=== PATIENT | male | born 1970 | race Caucasian/White ===

== ENCOUNTER 2017-07-15 15:41 | Inpatient (IN) | payer BC ==
[~2017-07-15] VITALS: Ht 175.3 cm; Wt 83.0 kg
[~2017-07-15 15:41] MED LIST: ACET-1693 PO; B-CO1CAP3 PO; CHLO0.1222 PO; FNTTP50 TD; METF1TAB53 PO; SITA100T3 PO; VALS40TA2 PO; nystatin
--- NOTE | 2017-07-15 17:04 | Medical Consult ---
Consultation Date of Consultation: Jul 15, 2017. Attending Physician: Mariusz Whitehead M.D. History of Present Illness 47 y/o male with tongue cancer undergoing radiation had PEG tube placed 8 days ago. Seen earlier this week by GI while in rad onc for discomfort and bumper was loosed 1 cm. Improved initially but over the last few days has had bloating after feeds, drainage around the tube, and today fever. Being admitted for further evaluation. Past Medical/Surgical History Medical History: HTN DM II invasive squamous cell carcinoma Surgeries & Dates: [place] teeth 05/09/17 Right partial glossectomy and right partial oropharyngectomy and right partial floor of mouth resection with right selective neck dissection - Dr. Dickinson 05/09/17 Left radial forearm free flap skin paddle , split thickness skin graft from the left thigh, right neck exploration, application of rigid external spint to the left upper extremity, tracheotomy - Dr. Bonner Vasectomy Social History Smoking Status: Never Smoker Allergies Coded Allergies: No Known Allergies (Unverified , 06/01/17) Review of Systems Constitutional: + fever, + weight loss (12 lbs prior to PEG) Physical Exam General Appearance: no apparent distress Abdomen/GI: non tender, soft, + pertinent finding (purulent around PEG only when tube is manipulated, no surrounding erythema) Assessment & Plan fever, leukocytosis s/p PEG placement no acute abdominal findings, agree with IV antibiotics await CT and would request contrast be given via PEG discussed with GI (Jett Mccrary) and attending (Dr. Whitehead) seen with Dr. Kurtz, he will be following over the weekend Patient seen and examined, history and labs reviewed and agree with above. History of tongue cancer, postprocedure day #8 from PEG tube placement, now with increased bloating and abdominal pain associated with some purulent drainage around this tube. Slightly tachycardic but this is normal per the , he did have a fever and his white blood cell count was elevated to 19,000. There is no overlying cellulitis, however it is tender to palpation along stoma. Concern for peristomal abscess or infection versus less likely Gastro colocutaneous fistula. Agree with admission to medicine service, IV antibiotics. Hold tube feeds for now. We'll obtain CT scan with IV contrast and oral contrast to the PEG tube. Overall the patient is stable, we'll await the results of the CT scan and see how he does with antibiotics. Surgery will follow, call for questions or concerns. Manoj Kurtz, DO
[2017-07-15] MEDS ORDERED: ONDANSETRON INJ 2 MG/ML 2 ML VIAL IV PRN (17:15)
[2017-07-15] MEDS ORDERED: ACETAMINOPHEN 325 MG TAB PO PRN (17:30)
[2017-07-15 17:55] VITALS: BMI 27.2
[2017-07-15] MEDS ORDERED: VANCOMYCIN CONSULT ACTIVE PRN (18:00)
[2017-07-15] MEDS ORDERED: PATIENT'S HEIGHT AND/OR WEIGHT NEEDED SCH (18:00)
[2017-07-15] MEDS ORDERED: PIPERACILL/TAZOBAC CONSULT ACTIVE PRN (18:00)
[2017-07-15 18:04] LABS: INR 1.1 (0.9-1.1); PTT PATIENT 31.7 SECONDS (21.0-31.0)
--- NOTE | 2017-07-15 18:10 | HISTORY & PHYSICAL EXAMINATION ---
DATE OF ADMISSION: 07/15/2017 PRIMARY CARE PROVIDER: Dr. Ribeiro CHIEF COMPLAINT: PEG tube associated abscess. HISTORY OF PRESENT COMPLAINT: He is a 47-year-old male with significant past medical history including diagnosis of tongue cancer in March of this year status post reconstructive surgery and ongoing chemotherapy and also diabetes and hypertension, apparently he has had a PEG tube placement last at [facility] for ongoing weight loss. He has been having complaining of some bloatiness after food since the PEG tube has been placed in. He has had checked the PEG tube site quite a few times since it was placed in. He was seen by GI as an outpatient last Tuesday, at that time the PEG tube was adjusted, as per the length, but his symptoms has not undergone any better. He complains to have ongoing bloatiness after food and noted to have some drain is coming out alongside the PEG tube placement. He was at the radiation department today and there, he was again seen by GI and noted to have pus coming out around the PEG tube with a probable localized abscesses. From that point, he was advised admission. He also mentioned to have some temperature since this morning, but no nausea and/or vomiting. He denies to have any other symptoms at this time. PAST MEDICAL HISTORY: Significant for tongue cancer, diagnosed in March of this year, status post reconstructive surgery and ongoing radiation since then, he has had radiation; has diabetes and hypertension. PAST SURGICAL HISTORY: Significant for reconstructive surgery of the tongue for tongue cancer, PEG tube placement last . FAMILY HISTORY: Significant that mother has diabetes and hypertension and had pancreatic cancer. SOCIAL HISTORY: He is . He has 2 children. He does not smoke and does not drink and he has been reasonably ambulant. ALLERGIES: NKDA. MEDICATIONS: As an outpatient - he has been on metformin 1000 mg b.i.d., Januvia 100 mg daily, Tylenol as directed, B complex 1 cap daily, Peridex 15 mL b.i.d. orally, fentanyl 50 mcg every 72 hours, Diovan 40 mg daily, and nystatin as directed. REVIEW OF SYSTEMS: Other systems reviewed are unremarkable except for those mentioned in history of present complaint. PHYSICAL EXAMINATION: GENERAL: On examination on the medical floor, he was not having any acute distress. VITAL SIGNS: Not yet noted, but unremarkable. HEENT: Typical for swelling of bilaterally upper neck with minimal tenderness. Oral cavity not examined but has thrush. CHEST: Clear to auscultate bilaterally. HEART: S1, S2 regular. ABDOMEN: Soft. PEG tube site was leaking with a serosanguineous and pus hematuria, localized tenderness around, no redness. Bowel sounds present. EXTREMITIES: Negative. MUSCULOSKELETAL: Did not show any acute arthritis. CENTRAL NERVOUS SYSTEM: He is alert, awake, oriented x3. LABORATORY AND IMAGING DATA: Noted today: His CBC noted today was white count 19.42, H&H 12.8/37.7, platelets 406. PRP, LFT, PT/INR, EKG, chest x-ray and CT of the abdomen is pending. IMPRESSION AND PLAN: 1. Abdominal abscess associated with PEG tube site. He was started with intravenous vancomycin and Zosyn. He will have a CAT scan with contrast to evaluate the area further and surgical consultation for probable drainage and GI consultation to probable changing of the PEG tube down the line. The blood culture will be taken as well. 2. Diabetes. His oral medications will be on hold. He will be put on sliding scale insulin coverage while in the hospital. 3. Hypertension. We will continue with his usual blood pressure medications. 4. Deep venous thrombosis prophylaxis with Lovenox. 5. Gastrointestinal prophylaxis with Maalox, Mylanta as needed. 6. Code status. He will be a full code. In my clinical judgment, the beneficiary meets criteria as per CMS for 2-midnight stay in the hospital. ROSE MARYD
[2017-07-15] MEDS ORDERED: PIPERACILL/TAZOBAC IV 4.5 GM in DEXTROSE 5% 50ML 50 ML IV ONE (18:15)
[2017-07-15 18:20] LABS: ALBUMIN 3.3 gm/dl (3.4-5.0); ALKALINE PHOSPHATASE 69 U/L (45-117); ALT/SGPT 17 U/L (12-78); AST/SGOT 8 U/L (15-37); BLOOD UREA NITROGEN 12 mg/dl (7-18); CALCIUM 8.9 mg/dl (8.5-10.1); CARBON DIOXIDE 30 mmol/L (21-32); CREATININE 0.68 mg/dl (0.60-1.40); GLUCOSE 148 mg/dl (70-99); POTASSIUM 4.3 mmol/L (3.5-5.1); SODIUM 131 mmol/L (136-145); TOTAL PROTEIN 7.9 gm/dl (6.4-8.2)
[2017-07-15] MEDS: NYSTATIN SUSP 500,000 U/5 ML UDC PO SCH (19:11)
--- NOTE | 2017-07-15 19:14 | DIAGNOSTIC IMAGING REPORT ---
CT OF THE ABDOMEN WITH ORAL CONTRAST CLINICAL HISTORY: Infected PEG tube. Evaluate for abscess. Head and neck cancer. COMPARISON STUDY: No previous studies for comparison. TECHNIQUE: Axial images of the abdomen were obtained without IV contrast. Oral contrast was administered. FINDINGS: Lung bases are clear. There is heterogeneity of the liver. This is likely artifactual. The spleen is at the upper limits of normal for size. Unenhanced images of the adrenal glands, kidneys and pancreas are normal. Caliber of visualized small and large bowel are normal. There is no abdominal lymphadenopathy. A PEG tube is in place and appears appropriately positioned within the distal body of the stomach. There is moderate associated infiltration along the course of the PEG tube extending from the skin to the stomach. There is moderate asymmetric enlargement of the upper aspect of the left rectus abdominis muscle. Evaluation for abscess is suboptimal on this unenhanced exam. No well-defined fluid collection is identified on this unenhanced exam to suggest abscess. No suspicious lesions are identified within visualized skeletal structures. There is no hydronephrosis. There is no biliary or pancreatic ductal dilatation. IMPRESSION: 1. Appropriately positioned PEG tube. Moderate infiltration along the course of the PEG tube suggests infectious etiology with cellulitis, unless recent interval placement. Associated asymmetric enlargement of the upper aspect of the left rectus abdominis muscle. This is suboptimally assessed on this unenhanced exam although the findings on this exam favor phlegmon. A CT with IV contrast if no contraindications is recommended to exclude an intramuscular abscess. 2. Heterogeneity of the liver which is likely artifactual. This can be assessed at time of follow-up contrast-enhanced CT. Electronically signed by: Caden Monroe M.D. 07/15/2017 7:13 PM Dictated Date/Time: 07/15/2017 7:02 PM
[2017-07-15] MEDS ORDERED: DEXTROSE 50% 50 ML SYR IV PRN (19:30)
[2017-07-15] MEDS ORDERED: VANCOMYCIN INJ 2,000 MG in SODIUM CHLORIDE 0.9% 500ML 500 ML IV ONE (19:30)
[2017-07-15] MEDS ORDERED: GLUCOSE 40% GEL 15 GM TUBE PO PRN (19:30)
[2017-07-15] MEDS ORDERED: GLUCAGON FOR INJ 1 MG VIAL SQ PRN (19:30)
[2017-07-15] MEDS ORDERED: GLUCOSE 10 TABS/TUBE PO PRN (19:30)
[2017-07-15 19:57] VITALS: BP 114/74; PULSE 116; TEMP 37.7; O2SAT 94
[2017-07-15] MEDS ORDERED: FENTANYL 50 MCG/HR TDSY TD SCH (20:00)
[2017-07-15] MEDS: INSULIN ASPART 100 UNITS/ML 3 ML PEN SC SCH (20:28)
--- NOTE | 2017-07-15 20:41 | DIAGNOSTIC IMAGING REPORT ---
CHEST 2 VIEWS ROUTINE CLINICAL HISTORY: Preoperative evaluation. COMPARISON STUDY: No previous studies for comparison. FINDINGS: Lung volumes are within normal limits. No consolidation is identified and there is no evidence of pulmonary edema. Cardiomediastinal silhouette is normal. There is no pneumothorax or pleural effusion. IMPRESSION: No acute cardiopulmonary findings. Electronically signed by: Caden Monroe M.D. 07/15/2017 8:39 PM Dictated Date/Time: 07/15/2017 8:37 PM
[2017-07-15] MEDS ORDERED: NURSING VERBAL MED ORDER ONE (20:45)
[2017-07-15] MEDS: ENOXAPARIN 40 MG/0.4 ML SYR SQ SCH (21:01)
[2017-07-15] MEDS: CHLORHEXIDINE GLUCONATE 0.12% 480 ML MT SCH (21:08)
[2017-07-15 23:16] VITALS: BP 107/72; PULSE 104; TEMP 37.3; O2SAT 95
[2017-07-15] MEDS: CHECK FENTANYL PATCH PLACEMENT SCH (23:45)
[2017-07-16] VITALS (8 sets, daily range): BP systolic 103–120; BP diastolic 67–80; PULSE 99–105; TEMP 36.7–37.5; O2SAT 94–96; BMI 27.3
[2017-07-16] MEDS: PIPERACILL/TAZOBAC IV 3.375 GM in DEXTROSE 5% 100ML 100 ML IV SCH ×3 (02:18→17:26)
[2017-07-16] MEDS: VANCOMYCIN INJ 1,250 MG in SODIUM CHLORIDE 0.9% 250ML 250 ML IV SCH ×2 (05:40→14:00)
[2017-07-16] MEDS: INSULIN ASPART 100 UNITS/ML 3 ML PEN SC SCH ×4 (06:30→21:40)
--- NOTE | 2017-07-16 07:36 | Surgery Progress Note ---
Surgery Progress Note Date of Service Jul 16, 2017. Subjective Post OP Day: Postprocedure day #9 PEG tube placement + flatus, + pain controlled, + diet (had food PO for dinner yesterday. ), No bowel movement, No nausea, No vomiting Patient states he is feeling much better. He has not noticed any drainage from the PEG tube site since yesterday although he has not tried to look. Feels his abdominal pain is improving. States he was given dinner last night PO and did not eat a whole lot but denies any nausea/vomiting with that meal. Reports that he has not flushed his PEG tube since yesterday at lunch because he felt it may not be good for his infection. Objective Vital Signs: Date Time Temp Pulse Resp B/P (MAP) Pulse Ox O2 Delivery O2 Flow Rate FiO2 07/16/17 00:00 95 Room Air 07/15/17 23:16 37.3 104 18 107/72 (84) 95 Room Air 07/15/17 19:57 37.7 116 18 114/74 (87) 94 Room Air 07/15/17 17:55 Room Air 93 General Appearance: WD/WN, no apparent distress Head: normocephalic, atraumatic Neck: trachea midline Respiratory/Chest: no respiratory distress, no accessory muscle use Abdomen: non tender, no organomegaly, no pulsatile mass, + distended, + pertinent finding (PEG tube in place - No drainage present or expressed with palpation at this time. ) Incision(s): no erythema, no drainage Laboratory Results: Results Past 24 Hours Test 07/15/17 17:34 07/15/17 19:41 Range/Units Prothrombin Time 11.4 9.0-12.0 SECONDS Prothromb Time International Ratio 1.1 0.9-1.1 Activated Partial Thromboplast Time 31.7 21.0-31.0 SECONDS Partial Thromboplastin Ratio 1.2 Sodium Level 131 136-145 mmol/L Potassium Level 4.3 3.5-5.1 mmol/L Chloride Level 95 98-107 mmol/L Carbon Dioxide Level 30 21-32 mmol/L Anion Gap 6.0 3-11 mmol/L Blood Urea Nitrogen 12 7-18 mg/dl Creatinine 0.68 0.60-1.40 mg/dl Estimated GFR () 133.7 Estimated GFR (Non- 115.3 BUN/Creatinine Ratio 18.1 10-20 Random Glucose 148 70-99 mg/dl Calcium Level 8.9 8.5-10.1 mg/dl Total Bilirubin 0.4 0.2-1 mg/dl Aspartate Amino Transf (AST/SGOT) 8 15-37 U/L Alanine Aminotransferase (ALT/SGPT) 17 12-78 U/L Alkaline Phosphatase 69 45-117 U/L Total Protein 7.9 6.4-8.2 gm/dl Albumin 3.3 3.4-5.0 gm/dl Globulin 4.6 2.5-4.0 gm/dl Albumin/Globulin Ratio 0.7 0.9-2 Bedside Glucose 166 70-99 mg/dl Microbiology Results 07/15/17 Blood Culture, Received Pending 07/15/17 Blood Culture, Received Pending Diagnostic Interpretation: CT OF THE ABDOMEN WITH ORAL CONTRAST CLINICAL HISTORY: Infected PEG tube. Evaluate for abscess. Head and neck cancer. COMPARISON STUDY: No previous studies for comparison. TECHNIQUE: Axial images of the abdomen were obtained without IV contrast. Oral contrast was administered. FINDINGS: Lung bases are clear. There is heterogeneity of the liver. This is likely artifactual. The spleen is at the upper limits of normal for size. Unenhanced images of the adrenal glands, kidneys and pancreas are normal. Caliber of visualized small and large bowel are normal. There is no abdominal lymphadenopathy. A PEG tube is in place and appears appropriately positioned within the distal body of the stomach. There is moderate associated infiltration along the course of the PEG tube extending from the skin to the stomach. There is moderate asymmetric enlargement of the upper aspect of the left rectus abdominis muscle. Evaluation for abscess is suboptimal on this unenhanced exam. No well-defined fluid collection is identified on this unenhanced exam to suggest abscess. No suspicious lesions are identified within visualized skeletal structures. There is no hydronephrosis. There is no biliary or pancreatic ductal dilatation. IMPRESSION: 1. Appropriately positioned PEG tube. Moderate infiltration along the course of the PEG tube suggests infectious etiology with cellulitis, unless recent interval placement. Associated asymmetric enlargement of the upper aspect of the left rectus abdominis muscle. This is suboptimally assessed on this unenhanced exam although the findings on this exam favor phlegmon. A CT with IV contrast if no contraindications is recommended to exclude an intramuscular abscess. 2. Heterogeneity of the liver which is likely artifactual. This can be assessed at time of follow-up contrast-enhanced CT. Electronically signed by: Caden Monroe M.D. 07/15/2017 7:13 PM Dictated Date/Time: 07/15/2017 7:02 PM Assessment & Plan postprocedural day #8 PEG tube placement - Infected PEG tube Improving, No fever at this time, No N/V despite small PO feed last PM, + Flatus, No BM yet. CT indeterminant due to only oral contrast via PEG tube and lack of IV contrast. Continue IV antibiotics and medical management. Will discuss findings with Dr. Kurtz to determine need for CT w/ IV contrast as his condition seems to be improving. Please contact with questions or concerns. Patient S&E, CT reviewed, agree with above. Infected PEG tube, CT with no IV contrast but showed some surrounding inflammation but no definitive abscess. Patient feeling better, Less drainage around tube, less pain. No fevers since last night. No CBC drawn this morning. Recommend leave PEG in place, no surgical intervention at this time. Recommend IV abx until WBC normalizes and afebrile 24-48 hours, then transition to orals. Consider repeat CT scan if no clinical improvement, this time with IV contrast and contrast down PEG tube. may flush PEG tube daily. Repeat CBC in am [place]. Shay Kurtz, DO
[2017-07-16] MEDS: CHLORHEXIDINE GLUCONATE 0.12% 480 ML MT SCH ×2 (08:16→19:38)
[2017-07-16] MEDS: CHECK FENTANYL PATCH PLACEMENT SCH ×2 (08:17→16:00)
[2017-07-16] MEDS: NYSTATIN SUSP 500,000 U/5 ML UDC PO SCH ×4 (08:17→19:37)
[2017-07-16] MEDS: VALSARTAN 80 MG TAB PO SCH (08:18)
[2017-07-16] MEDS: VITAMIN B COMPLEX TAB PO SCH (08:19)
--- NOTE | 2017-07-16 10:03 | GASTROINTESTINAL CONSULTATION ---
DATE OF CONSULTATION: 07/15/2017 REFERRING PHYSICIAN: Dr. Foley of radiation oncology. REASON FOR CONSULTATION: I was asked by Dr. Foley from radiation oncology to consult on this patient because of the concern of a PEG tube dysfunction and drainage. HISTORY OF PRESENT ILLNESS: The patient is a 47-year-old gentleman with a history of tongue cancer and undergoing radiation therapy for this who had a PEG tube placed for concerns about dysphagia from his radiation treatment. The patient states that for several days he has had some slight discomfort to the PEG site and a little bit of drainage and bleeding. Today, it became significantly worse and he mentioned this when he arrived for his radiation therapy. The patient has also noticed some low grade fevers and some chills. The who is present at the bedside states that the drainage was foul smelling. The patient states that it was foul smelling as well. The patient states he has had no issue having the peg pulled or concerns for it being dislodged. It had been functioning well. He has had no nausea, vomiting or rectal bleeding. PAST MEDICAL HISTORY: I reviewed his medical records and past medical history and his past medical history is significant for what is already mentioned as well as diabetes and hypertension. FAMILY HISTORY: Negative for gastrointestinal disease. SOCIAL HISTORY: Significant for no active smoking or drinking. ALLERGIES: He denies any drug allergies. OUTPATIENT MEDICATIONS: Include metformin, Januvia, numerous vitamins, Peridex, Diovan and fentanyl p.r.n. for pain. REVIEW OF SYSTEMS: As above, otherwise he denies any recent seizures. He denies any recent change in hearing or vision. He has had no joint swelling. He denies any palpitations or productive cough. He has had no depression or change in mood. He denies any dysuria or polyuria. He has had no shortness of breath. He denies any easy bruising, icterus, jaundice or rashes. He has had no heat or cold intolerance, though he has had some chills. He has had some related dysphagia to the radiation therapy. PHYSICAL EXAMINATION: GENERAL: Reveals a gentleman in no significant distress with anicteric skin. HEENT: Eyes show anicteric sclerae. He has some erythema to his face and neck. He has no obvious adenopathy. CHEST: Clear. HEART: Regular rate and rhythm. ABDOMEN: There are very small amount of erythema close to the PEG site, though the minute I moved the bolster of the peg significant pus and blood drained. I did express some more and it was foul smelling. He had tenderness to the site as well. I did loosen the bolster slightly and it does move freely in and out. He has good bowel sounds, no rebound tenderness. EXTREMITIES: Warm with good distal pulses. NEUROLOGIC: He is grossly intact. Alert and oriented x3. LABORATORY DATA: He had a white blood cell count of 19.4, platelet count of 406,000. IMPRESSION: Clearly the patient has infected PEG site and peristomal abscess. The patient should get a CAT scan to look at the extent of this and should be seen by surgery. The family, the in particular and the patient is very concerned about having the PEG removed and they would like to try to safe it. I am concerned it may need to be removed for treatment, but if it is in good position, he may be able to keep the PEG site intact. I will leave this up to surgery for further guidance on this. Certainly, he needs antibiotics and admission. I will call surgery myself and our team will discuss this with the admitting hospitalist service. I would not use his PEG tube at this point until position is confirmed. RAFA
--- NOTE | 2017-07-16 10:44 | GASTROENTEROLOGY PROGRESS NOTE ---
DATE: 07/16/2017 DATE: 07/16/2017 HISTORY OF PRESENT ILLNESS: Mr. Toney today feels much better. His is at the bedside. He has less pain, though he continues to have some drainage from his PEG site. The CAT scan did confirm an abscess. He was also seen by surgery. It appears at this point we do not need to remove the PEG tube, though we will continue to follow him clinically. We are not going to use the PEG at this point and he has been able to eat. He has had no fevers or chills. He continues on IV antibiotics. PHYSICAL EXAMINATION: GENERAL: Reveals a gentleman resting comfortably in bed. VITAL SIGNS: His most recent temperature is 37.8, blood pressure is 117/79, pulse is 105. SKIN: Anicteric. HEAD, EYES, EARS, NOSE, AND THROAT: Eyes show anicteric sclerae. He does have continued erythema of his faces, probably from XRT. CHEST: Clear. HEART: Regular rate and rhythm. ABDOMEN: Soft. Again, some small amount of drainage at the PEG site, but no rebound tenderness or large collection noted. EXTREMITIES: Warm with good distal pulses. No edema. NEUROLOGIC: He is grossly intact, alert and oriented x3. LABORATORY DATA: Show normal INR 1.1 and again CAT scan is as outlined above. IMPRESSION: Abscess at the PEG site on IV antibiotics and improving. The CT scan showed the PEG appears to be in proper position so I would continue to follow him clinically and follow surgical recommendations. Since he is eating I would not use the PEG site at this point. RAFA
--- NOTE | 2017-07-16 11:33 | Pharmacy Progress Note ---
Pharmacy Antibiotic Consult Date of Service: Jul 16, 2017. Pharmacy Dosing Scope Pharmacy is consulted to initiate vancomycin and Zosyn IV dosing therapy, order appropriate labs and adjust drug dose/frequency. Subjective The patient is a 47 year old male admitted on Jul 15, 2017 at 16:13 with kina- stomal abscess post PEG tube placement. He is ordered vancomycin and Zosyn for cellulitis. Objective Height (Feet): 5 Height (Inches): 9.00 Weight (Kilograms): 83.900 Lab Results (24hrs): Test 07/15/17 17:34 07/15/17 19:41 07/16/17 07:29 Prothrombin Time 11.4 SECONDS (9.0-12.0) Prothromb Time International Ratio 1.1 (0.9-1.1) Activated Partial Thromboplast Time 31.7 SECONDS (21.0-31.0) Partial Thromboplastin Ratio 1.2 Sodium Level 131 mmol/L (136-145) Potassium Level 4.3 mmol/L (3.5-5.1) Chloride Level 95 mmol/L (98-107) Carbon Dioxide Level 30 mmol/L (21-32) Anion Gap 6.0 mmol/L (3-11) Blood Urea Nitrogen 12 mg/dl (7-18) Creatinine 0.68 mg/dl (0.60-1.40) Estimated GFR () 133.7 Estimated GFR (Non- 115.3 BUN/Creatinine Ratio 18.1 (10-20) Random Glucose 148 mg/dl (70-99) Calcium Level 8.9 mg/dl (8.5-10.1) Total Bilirubin 0.4 mg/dl (0.2-1) Aspartate Amino Transf (AST/SGOT) 8 U/L (15-37) Alanine Aminotransferase (ALT/SGPT) 17 U/L (12-78) Alkaline Phosphatase 69 U/L (45-117) Total Protein 7.9 gm/dl (6.4-8.2) Albumin 3.3 gm/dl (3.4-5.0) Globulin 4.6 gm/dl (2.5-4.0) Albumin/Globulin Ratio 0.7 (0.9-2) Bedside Glucose 166 mg/dl (70-99) 139 mg/dl (70-99) Micro Results: Blood cx x 2 are pending Assessment & Plan Vancomycin: Loading dose: 2000 mg IV X 1 dose (24mg/kg) then: 1250 mg IV every 10 hours. Goal trough level estimate: between 15 - 20 mcg/mL. Trough level has been ordered for: 07/17 prior to 1000 dose. Zosyn 3.375gm IV q8h continuous infusion for CrCl>20ml/min. Pharmacy will continue to follow and will adjust dose/frequency as necessary. Thank you
[2017-07-16] MEDS: BOOST GLUCOSE CONTROL PO SCH ×2 (14:02→19:38)
[2017-07-16 16:15] LABS: BASO % 0.2 %; BASO ABS # 0.03 K/uL (0-0.2); EOS % 1.3 %; EOS ABS # 0.18 K/uL (0-0.5); HEMATOCRIT 34.6 % (42-52); HEMOGLOBIN 11.4 g/dL (14.0-18.0); IG# 0.04 K/uL (0.00-0.02); LYMPH % 5.3 %; LYMPH ABS # 0.75 K/uL (1.2-3.4); MEAN CELL VOLUME 87.2 fL (80-100); MEAN CORPUSCULAR HEMOGLOBIN 28.7 pg (25-34); MEAN CORPUSCULAR HGB CONC 32.9 g/dl (32-36); MEAN PLATELET VOLUME 9.2 fL (7.4-10.4); MONO % 9.5 %; MONO ABS # 1.33 K/uL (0.11-0.59); NEUT % 83.4 %; NEUT ABS # 11.71 K/uL (1.4-6.5); PLATELET COUNT 364 K/uL (130-400); RED CELL DISTRIBUTION WIDTH CV 12.6 % (11.5-14.5); RED CELL DISTRIBUTION WIDTH SD 40.3 fL (36.4-46.3); WHITE BLOOD COUNT 14.04 K/uL (4.8-10.8)
[2017-07-16 16:52] LABS: CALCIUM 8.9 mg/dl (8.5-10.1); CREATININE 0.72 mg/dl (0.60-1.40); POTASSIUM 3.9 mmol/L (3.5-5.1)
--- NOTE | 2017-07-16 17:34 | Progress Note ---
Subjective Date of Service: Jul 16, 2017. Subjective Pt evaluation today including: conversation w/ patient, physical exam, lab review, review of studies, review of inpatient medication list Saw/examined the patient in room 408 He's doing okay today, tolerating PO intake PEG tube still in place, warm to touch around the area Denies nausea/vomiting/fevers/chills. Review of Systems Constitutional: No fever, No chills Abdomen: No pain, No nausea, No vomiting, No diarrhea Medications Current Inpatient Medications Medications (Trade) Dose Ordered Sig/Berhane Route Start Time Stop Time Status Last Admin Dose Admin Enoxaparin Sodium (Lovenox Inj) 40 mg Q24H SQ 07/15/17 20:00 08/14/17 19:59 07/15/17 21:01 40 MG Ondansetron HCl (Zofran Inj) 4 mg Q6H PRN IV 07/15/17 17:15 08/14/17 17:14 Acetaminophen (Tylenol Tab) 650 mg Q6 PRN PO 07/15/17 17:30 08/14/17 17:29 Vitamin B Complex (Vitamin B Complex) 1 tab DAILY PO 07/16/17 08:00 08/15/17 07:59 07/16/17 08:19 1 TAB Chlorhexidine Gluconate (Peridex Oral Soln) 15 ml BID MT 07/15/17 20:00 08/14/17 19:59 07/16/17 08:16 15 ML Fentanyl (Duragesic Patch) 50 mcg Q3D@1999 TD 07/15/17 20:00 07/29/17 19:59 Future hold Valsartan (Diovan Tab) 40 mg DAILY PO 07/16/17 08:00 08/15/17 07:59 07/16/17 08:18 40 MG Nystatin (Mycostatin Susp) 5 ml QID PO 07/15/17 20:00 07/29/17 19:59 07/16/17 16:44 5 ML Miscellaneous (Fentanyl Patch Remove & Waste) 1 ea Q3D@1959 N/A 07/18/17 19:59 08/17/17 19:58 Miscellaneous Information (Check Fentanyl Patch Placement) 1 ea QS N/A 07/16/17 00:00 08/15/17 00:00 07/16/17 16:00 1 EA Piperacillin Sod/ Tazobactam Sod 3.375 gm/Dextrose 115 ml @ 28.75 mls/ hr Q8H IV 07/16/17 02:00 07/25/17 23:59 07/16/17 09:44 28.75 MLS/HR Piperacillin Sod/ Tazobactam Sod (Consult) 1 ea UD PRN N/A 07/15/17 18:00 08/14/17 17:59 Vancomycin HCl (Consult) 1 ea UD PRN N/A 07/15/17 18:00 08/14/17 17:59 Insulin Aspart (novoLOG ASPART) SLIDING SCALE G... ACHS SC 07/15/17 21:00 08/14/17 20:59 07/16/17 13:23 4 UNITS Glucose (Glucose 40% Gel) 15-30 GRAMS 15 GRAMS... UD PRN PO 07/15/17 19:30 08/14/17 19:29 Glucose (Glucose Chew Tab) 4-8 Tablets 4 Tabl... UD PRN PO 07/15/17 19:30 08/14/17 19:29 Dextrose (Dextrose 50% 50ML Syringe) 25-50ML OF 50% DW IV FOR... UD PRN IV 07/15/17 19:30 08/14/17 19:29 Glucagon (Glucagon Inj) 1 mg UD PRN SQ 07/15/17 19:30 08/14/17 19:29 Vancomycin HCl 1250 mg/Sodium Chloride 275 ml @ 125 mls/hr Q10H IV 07/16/17 04:00 07/25/17 23:59 07/16/17 14:00 125 MLS/HR Enteral Nutritional Formula (Boost Glucose Control) 1 can TID@1000,1400,2100 PO 07/16/17 14:00 08/15/17 13:59 07/16/17 14:02 1 CAN Objective Vital Signs Date Time Temp Pulse Resp B/P (MAP) Pulse Ox O2 Delivery O2 Flow Rate FiO2 07/16/17 15:18 37.5 104 18 103/67 (79) 96 Room Air 07/16/17 11:33 36.7 100 18 118/77 (91) 96 07/16/17 08:00 95 Room Air 07/16/17 07:43 37.2 105 18 117/79 (92) 95 07/16/17 00:00 95 Room Air 07/15/17 23:16 37.3 104 18 107/72 (84) 95 Room Air 07/15/17 19:57 37.7 116 18 114/74 (87) 94 Room Air 07/15/17 17:55 Room Air 93 Physical Exam General Appearance: no apparent distress Respiratory/Chest: lungs clear, normal breath sounds, no respiratory distress Cardiovascular: regular rate, rhythm, no edema, no murmur Abdomen: + pertinent finding (PEG tube in place, warm to touch around the area , no significant erythema noted) Laboratory Results Last 24 Hours Test 07/15/17 17:34 07/15/17 19:41 07/16/17 07:29 07/16/17 11:19 Prothrombin Time 11.4 SECONDS Prothromb Time International Ratio 1.1 Activated Partial Thromboplast Time 31.7 SECONDS Partial Thromboplastin Ratio 1.2 Sodium Level 131 mmol/L Potassium Level 4.3 mmol/L Chloride Level 95 mmol/L Carbon Dioxide Level 30 mmol/L Anion Gap 6.0 mmol/L Blood Urea Nitrogen 12 mg/dl Creatinine 0.68 mg/dl Estimated GFR () 133.7 Estimated GFR (Non- 115.3 BUN/Creatinine Ratio 18.1 Random Glucose 148 mg/dl Calcium Level 8.9 mg/dl Total Bilirubin 0.4 mg/dl Aspartate Amino Transf (AST/SGOT) 8 U/L Alanine Aminotransferase (ALT/SGPT) 17 U/L Alkaline Phosphatase 69 U/L Total Protein 7.9 gm/dl Albumin 3.3 gm/dl Globulin 4.6 gm/dl Albumin/Globulin Ratio 0.7 Bedside Glucose 166 mg/dl 139 mg/dl 185 mg/dl Test 07/16/17 15:47 07/16/17 16:34 White Blood Count 14.04 K/uL Red Blood Count 3.97 M/uL Hemoglobin 11.4 g/dL Hematocrit 34.6 % Mean Corpuscular Volume 87.2 fL Mean Corpuscular Hemoglobin 28.7 pg Mean Corpuscular Hemoglobin Concent 32.9 g/dl Platelet Count 364 K/uL Mean Platelet Volume 9.2 fL Neutrophils (%) (Auto) 83.4 % Lymphocytes (%) (Auto) 5.3 % Monocytes (%) (Auto) 9.5 % Eosinophils (%) (Auto) 1.3 % Basophils (%) (Auto) 0.2 % Neutrophils # (Auto) 11.71 K/uL Lymphocytes # (Auto) 0.75 K/uL Monocytes # (Auto) 1.33 K/uL Eosinophils # (Auto) 0.18 K/uL Basophils # (Auto) 0.03 K/uL RDW Standard Deviation 40.3 fL RDW Coefficient of Variation 12.6 % Immature Granulocyte % (Auto) 0.3 % Immature Granulocyte # (Auto) 0.04 K/uL Sodium Level 133 mmol/L Potassium Level 3.9 mmol/L Chloride Level 97 mmol/L Carbon Dioxide Level 32 mmol/L Anion Gap 4.0 mmol/L Blood Urea Nitrogen 10 mg/dl Creatinine 0.72 mg/dl Est Creatinine Clear Calc Drug Dose 129.6 ml/min Estimated GFR () 130.6 Estimated GFR (Non- 112.7 BUN/Creatinine Ratio 14.1 Random Glucose 144 mg/dl Calcium Level 8.9 mg/dl Bedside Glucose 154 mg/dl Assessment and Plan This is a 47 year old male with a PMH of tongue cancer s/p resection and ongoing radiation s/p reconstructive surgery to the tongue and also 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 abscess around the area currently tolerating PO diet we will hold off on using the PEG tube for now IV Vanco + Zosyn cultures pending appreciate GI and general surgery input possible CT abdomen/pelvis with IV contrast if surgery suggests it HTN continue Diovan; BP stable DM2 insulin sliding scale; BSGs are stable DVT ppx Lovenox FULL CODE
[2017-07-16] MEDS ORDERED: BISACODYL 5 MG TABEC PO ONE (18:30)
[2017-07-16] MEDS: DOCUSATE SODIUM 100 MG CAP PO ONE ×2 (19:36→21:40)
[2017-07-16] MEDS: DOCUSATE SODIUM 100 MG CAP PO SCH (19:37)
[2017-07-16] MEDS: ENOXAPARIN 40 MG/0.4 ML SYR SQ SCH (19:38)
[2017-07-17] VITALS (8 sets, daily range): BP systolic 109–114; BP diastolic 71–77; PULSE 87–102; TEMP 36.8–37.3; O2SAT 94–96; BMI 27.3
[2017-07-17] MEDS: CHECK FENTANYL PATCH PLACEMENT SCH ×3 (00:34→15:20)
[2017-07-17] MEDS: VANCOMYCIN INJ 1,250 MG in SODIUM CHLORIDE 0.9% 250ML 250 ML IV SCH ×3 (00:34→17:42)
[2017-07-17] MEDS: PIPERACILL/TAZOBAC IV 3.375 GM in DEXTROSE 5% 100ML 100 ML IV SCH ×3 (02:33→17:42)
[2017-07-17 06:27] LABS: HEMATOCRIT 34.4 % (42-52); HEMOGLOBIN 11.3 g/dL (14.0-18.0); MEAN CELL VOLUME 87.1 fL (80-100); MEAN CORPUSCULAR HEMOGLOBIN 28.6 pg (25-34); MEAN CORPUSCULAR HGB CONC 32.8 g/dl (32-36); MEAN PLATELET VOLUME 9.2 fL (7.4-10.4); PLATELET COUNT 326 K/uL (130-400); RED CELL DISTRIBUTION WIDTH CV 12.6 % (11.5-14.5); RED CELL DISTRIBUTION WIDTH SD 40.5 fL (36.4-46.3); WHITE BLOOD COUNT 12.14 K/uL (4.8-10.8)
[2017-07-17] MEDS: INSULIN ASPART 100 UNITS/ML 3 ML PEN SC SCH ×4 (06:30→20:14)
[2017-07-17 06:59] LABS: CALCIUM 9.1 mg/dl (8.5-10.1); CREATININE 0.7 mg/dl (0.60-1.40); POTASSIUM 3.9 mmol/L (3.5-5.1)
--- NOTE | 2017-07-17 07:00 | Surgery Progress Note ---
Surgery Progress Note Date of Service Jul 17, 2017. Subjective + feeling well, + ambulating, + bowel movement, + flatus, + pain controlled, + diet (Tolerating DM II diet PO), No complaints, No nausea, No vomiting Objective Vital Signs: Date Time Temp Pulse Resp B/P (MAP) Pulse Ox O2 Delivery O2 Flow Rate FiO2 07/17/17 03:21 37.1 98 20 114/77 (89) 96 Room Air 07/17/17 00:35 Room Air 07/16/17 23:16 37.3 99 20 114/72 (86) 94 Room Air 07/16/17 20:15 Room Air 07/16/17 20:09 36.9 105 20 120/80 (93) 96 Room Air 07/16/17 18:00 95 Room Air 07/16/17 15:18 37.5 104 18 103/67 (79) 96 Room Air 07/16/17 11:33 36.7 100 18 118/77 (91) 96 07/16/17 08:00 95 Room Air 07/16/17 07:43 37.2 105 18 117/79 (92) 95 General Appearance: WD/WN, no apparent distress Head: normocephalic, atraumatic Respiratory/Chest: no respiratory distress, no accessory muscle use Abdomen: non tender, non distended, soft, no organomegaly, + pertinent finding (PEG in place) Incision(s): no erythema, no drainage Laboratory Results: Results Past 24 Hours Test 07/16/17 07:29 07/16/17 11:19 07/16/17 15:47 07/16/17 16:34 Range/Units Bedside Glucose 139 185 154 70-99 mg/dl White Blood Count 14.04 4.8-10.8 K/uL Red Blood Count 3.97 4.7-6.1 M/uL Hemoglobin 11.4 14.0-18.0 g/dL Hematocrit 34.6 42-52 % Mean Corpuscular Volume 87.2 80-100 fL Mean Corpuscular Hemoglobin 28.7 25-34 pg Mean Corpuscular Hemoglobin Concent 32.9 32-36 g/dl Platelet Count 364 130-400 K/uL Mean Platelet Volume 9.2 7.4-10.4 fL Neutrophils (%) (Auto) 83.4 % Lymphocytes (%) (Auto) 5.3 % Monocytes (%) (Auto) 9.5 % Eosinophils (%) (Auto) 1.3 % Basophils (%) (Auto) 0.2 % Neutrophils # (Auto) 11.71 1.4-6.5 K/uL Lymphocytes # (Auto) 0.75 1.2-3.4 K/uL Monocytes # (Auto) 1.33 0.11-0.59 K/uL Eosinophils # (Auto) 0.18 0-0.5 K/uL Basophils # (Auto) 0.03 0-0.2 K/uL RDW Standard Deviation 40.3 36.4-46.3 fL RDW Coefficient of Variation 12.6 11.5-14.5 % Immature Granulocyte % (Auto) 0.3 % Immature Granulocyte # (Auto) 0.04 0.00-0.02 K/uL Sodium Level 133 136-145 mmol/L Potassium Level 3.9 3.5-5.1 mmol/L Chloride Level 97 98-107 mmol/L Carbon Dioxide Level 32 21-32 mmol/L Anion Gap 4.0 3-11 mmol/L Blood Urea Nitrogen 10 7-18 mg/dl Creatinine 0.72 0.60-1.40 mg/dl Est Creatinine Clear Calc Drug Dose 129.6 ml/min Estimated GFR () 130.6 Estimated GFR (Non- 112.7 BUN/Creatinine Ratio 14.1 10-20 Random Glucose 144 70-99 mg/dl Calcium Level 8.9 8.5-10.1 mg/dl Test 07/16/17 19:49 07/17/17 05:58 Range/Units Bedside Glucose 138 70-99 mg/dl White Blood Count 12.14 4.8-10.8 K/uL Red Blood Count 3.95 4.7-6.1 M/uL Hemoglobin 11.3 14.0-18.0 g/dL Hematocrit 34.4 42-52 % Mean Corpuscular Volume 87.1 80-100 fL Mean Corpuscular Hemoglobin 28.6 25-34 pg Mean Corpuscular Hemoglobin Concent 32.8 32-36 g/dl RDW Standard Deviation 40.5 36.4-46.3 fL RDW Coefficient of Variation 12.6 11.5-14.5 % Platelet Count 326 130-400 K/uL Mean Platelet Volume 9.2 7.4-10.4 fL Assessment & Plan postprocedural day #9 PEG tube placement - Infected PEG tube Doing well, tolerating PO feeds. +Flatus, +BM PEG in place, continue to flush daily. WBC 12.14 this AM, down from 14.04 yesterday, afebrile. Continue IV antibiotics and medical management. May transition to PO antibiotics once WBC count Normalizes - repeat CBC in AM Please contact with questions or concerns. postprocedural day #8 PEG tube placement - Infected PEG tube Improving, No fever at this time, No N/V despite small PO feed last PM, + Flatus, No BM yet. CT indeterminant due to only oral contrast via PEG tube and lack of IV contrast. Continue IV antibiotics and medical management. Will discuss findings with Dr. Kurtz to determine need for CT w/ IV contrast as his condition seems to be improving. Please contact with questions or concerns.
[2017-07-17] MEDS: CHLORHEXIDINE GLUCONATE 0.12% 480 ML MT SCH ×2 (08:21→19:59)
[2017-07-17] MEDS: DOCUSATE SODIUM 100 MG CAP PO SCH ×2 (08:22→19:59)
[2017-07-17] MEDS: NYSTATIN SUSP 500,000 U/5 ML UDC PO SCH ×4 (08:23→19:59)
[2017-07-17] MEDS: VALSARTAN 80 MG TAB PO SCH (08:23)
[2017-07-17] MEDS: SENNA 8.6 MG TAB PO SCH (08:24)
[2017-07-17] MEDS: VITAMIN B COMPLEX TAB PO SCH (08:24)
[2017-07-17] MEDS ORDERED: VANCOMYCIN TROUGH SCH (09:30)
[2017-07-17] MEDS: BOOST GLUCOSE CONTROL PO SCH ×4 (09:36→20:00)
--- NOTE | 2017-07-17 12:37 | Progress Note ---
Subjective Date of Service: Jul 17, 2017. Subjective Pt evaluation today including: conversation w/ patient, conversation w/ family , physical exam, lab review, review of studies, review of inpatient medication list Saw/examined the patient in room 408 No problems/issues to note today Abdomen feeling better, warmth persists, bloating is improved Tolerating PO diet. Review of Systems Constitutional: No fever, No chills Respiratory: No shortness of breath Cardiac: No chest pain Abdomen: No pain, No nausea, No vomiting, No diarrhea, No constipation, No GI bleeding Medications Current Inpatient Medications Medications (Trade) Dose Ordered Sig/Berhane Route Start Time Stop Time Status Last Admin Dose Admin Enoxaparin Sodium (Lovenox Inj) 40 mg Q24H SQ 07/15/17 20:00 08/14/17 19:59 07/16/17 19:38 40 MG Ondansetron HCl (Zofran Inj) 4 mg Q6H PRN IV 07/15/17 17:15 08/14/17 17:14 Acetaminophen (Tylenol Tab) 650 mg Q6 PRN PO 07/15/17 17:30 08/14/17 17:29 Vitamin B Complex (Vitamin B Complex) 1 tab DAILY PO 07/16/17 08:00 08/15/17 07:59 07/17/17 08:24 1 TAB Chlorhexidine Gluconate (Peridex Oral Soln) 15 ml BID MT 07/15/17 20:00 08/14/17 19:59 07/17/17 08:21 15 ML Fentanyl (Duragesic Patch) 50 mcg Q3D@1999 TD 07/15/17 20:00 07/29/17 19:59 Future hold Valsartan (Diovan Tab) 40 mg DAILY PO 07/16/17 08:00 08/15/17 07:59 07/17/17 08:23 40 MG Nystatin (Mycostatin Susp) 5 ml QID PO 07/15/17 20:00 07/29/17 19:59 07/17/17 12:21 5 ML Miscellaneous (Fentanyl Patch Remove & Waste) 1 ea Q3D@1959 N/A 07/18/17 19:59 08/17/17 19:58 Miscellaneous Information (Check Fentanyl Patch Placement) 1 ea QS N/A 07/16/17 00:00 08/15/17 00:00 07/17/17 08:21 1 EA Piperacillin Sod/ Tazobactam Sod 3.375 gm/Dextrose 115 ml @ 28.75 mls/ hr Q8H IV 07/16/17 02:00 07/25/17 23:59 07/17/17 09:59 28.75 MLS/HR Piperacillin Sod/ Tazobactam Sod (Consult) 1 ea UD PRN N/A 07/15/17 18:00 08/14/17 17:59 Vancomycin HCl (Consult) 1 ea UD PRN N/A 07/15/17 18:00 08/14/17 17:59 Insulin Aspart (novoLOG ASPART) SLIDING SCALE G... ACHS SC 07/15/17 21:00 08/14/17 20:59 07/16/17 13:23 4 UNITS Glucose (Glucose 40% Gel) 15-30 GRAMS 15 GRAMS... UD PRN PO 07/15/17 19:30 08/14/17 19:29 Glucose (Glucose Chew Tab) 4-8 Tablets 4 Tabl... UD PRN PO 07/15/17 19:30 08/14/17 19:29 Dextrose (Dextrose 50% 50ML Syringe) 25-50ML OF 50% DW IV FOR... UD PRN IV 07/15/17 19:30 08/14/17 19:29 Glucagon (Glucagon Inj) 1 mg UD PRN SQ 07/15/17 19:30 08/14/17 19:29 Vancomycin HCl 1250 mg/Sodium Chloride 275 ml @ 125 mls/hr Q10H IV 07/16/17 04:00 07/25/17 23:59 07/17/17 09:59 125 MLS/HR Enteral Nutritional Formula (Boost Glucose Control) 1 can TID@1000,1400,2100 PO 07/16/17 14:00 08/15/17 13:59 07/17/17 10:15 1 CAN Docusate Sodium (coLACE CAP) 100 mg BID PO 07/16/17 20:00 08/15/17 19:59 07/17/17 08:22 100 MG Senna (Senokot Tab) 8.6 mg QAM PO 07/17/17 08:00 08/16/17 07:59 07/17/17 08:24 8.6 MG Objective Vital Signs Date Time Temp Pulse Resp B/P (MAP) Pulse Ox O2 Delivery O2 Flow Rate FiO2 07/17/17 11:29 37.3 102 18 112/72 (85) 94 07/17/17 08:00 96 Room Air 07/17/17 07:52 36.9 101 18 112/75 (87) 96 Room Air 07/17/17 03:21 37.1 98 20 114/77 (89) 96 Room Air 07/17/17 00:35 Room Air 07/16/17 23:16 37.3 99 20 114/72 (86) 94 Room Air 07/16/17 20:15 Room Air 07/16/17 20:09 36.9 105 20 120/80 (93) 96 Room Air 07/16/17 18:00 95 Room Air 07/16/17 15:18 37.5 104 18 103/67 (79) 96 Room Air Physical Exam General Appearance: no apparent distress Respiratory/Chest: no respiratory distress, no accessory muscle use Abdomen: + pertinent finding (surrounding PEG tube: warmth to touch, mild tenderness, no erythema, slightly hard to touch) Extremities: normal inspection, no pedal edema Laboratory Results Last 24 Hours Test 07/16/17 15:47 07/16/17 16:34 07/16/17 19:49 07/17/17 05:58 White Blood Count 14.04 K/uL 12.14 K/uL Red Blood Count 3.97 M/uL 3.95 M/uL Hemoglobin 11.4 g/dL 11.3 g/dL Hematocrit 34.6 % 34.4 % Mean Corpuscular Volume 87.2 fL 87.1 fL Mean Corpuscular Hemoglobin 28.7 pg 28.6 pg Mean Corpuscular Hemoglobin Concent 32.9 g/dl 32.8 g/dl Platelet Count 364 K/uL 326 K/uL Mean Platelet Volume 9.2 fL 9.2 fL Neutrophils (%) (Auto) 83.4 % Lymphocytes (%) (Auto) 5.3 % Monocytes (%) (Auto) 9.5 % Eosinophils (%) (Auto) 1.3 % Basophils (%) (Auto) 0.2 % Neutrophils # (Auto) 11.71 K/uL Lymphocytes # (Auto) 0.75 K/uL Monocytes # (Auto) 1.33 K/uL Eosinophils # (Auto) 0.18 K/uL Basophils # (Auto) 0.03 K/uL RDW Standard Deviation 40.3 fL 40.5 fL RDW Coefficient of Variation 12.6 % 12.6 % Immature Granulocyte % (Auto) 0.3 % Immature Granulocyte # (Auto) 0.04 K/uL Sodium Level 133 mmol/L 134 mmol/L Potassium Level 3.9 mmol/L 3.9 mmol/L Chloride Level 97 mmol/L 98 mmol/L Carbon Dioxide Level 32 mmol/L 31 mmol/L Anion Gap 4.0 mmol/L 5.0 mmol/L Blood Urea Nitrogen 10 mg/dl 8 mg/dl Creatinine 0.72 mg/dl 0.70 mg/dl Est Creatinine Clear Calc Drug Dose 129.6 ml/min 133.3 ml/min Estimated GFR () 130.6 132.1 Estimated GFR (Non- 112.7 114.0 BUN/Creatinine Ratio 14.1 11.9 Random Glucose 144 mg/dl 123 mg/dl Calcium Level 8.9 mg/dl 9.1 mg/dl Bedside Glucose 154 mg/dl 138 mg/dl Magnesium Level 2.4 mg/dl Test 07/17/17 07:36 07/17/17 09:13 07/17/17 11:19 Bedside Glucose 128 mg/dl 165 mg/dl Vancomycin Level Trough 10.7 mcg/ml Assessment and Plan This is a 47 year old male with a PMH of tongue cancer s/p resection and ongoing radiation s/p reconstructive surgery to the tongue and also 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 monitor CBC switch to orals in 1-2 days and discharge home 07/16 CT of the abdomen shows possible cellulitis vs. abscess around the area currently tolerating PO diet we will hold off on using the PEG tube for now IV Vanco + Zosyn cultures pending appreciate GI and general surgery input possible CT abdomen/pelvis with IV contrast if surgery suggests it HTN continue Diovan; BP stable DM2 insulin sliding scale; BSGs are stable DVT ppx Lovenox FULL CODE
--- NOTE | 2017-07-17 13:59 | Pharmacy Progress Note ---
Pharmacy Abx Dose Short Note Date of Service Jul 17, 2017. Assessment & Plan Assessment 47 year old male receiving vancomycin & Zosyn for treatment of peristomal abscess post PEG tube placement. Day # 3 of antimicrobial therapy. Plan Vancomycin * Trough level of 10.7 mcg/mL is subtherapeutic. * Change to 1250 mg IV every 8 hours * Goal trough level for abscess : ~16 mcg/mL * Will order trough in a few days if vanc is continued. Pharmacy will continue to follow and will adjust dose/frequency as necessary. Thank you.
--- NOTE | 2017-07-17 17:41 | PROGRESS NOTE ---
DATE: 07/17/2017 HISTORY: Mr. Toney is doing much better today. He has no significant pain in his abdomen or at the PEG site. He does have some small amount of pus-like drainage though this has significantly improved. He is able to tolerate p.o. so his PEG tube is not being used. He has had no fevers or shaking chills. PHYSICAL EXAMINATION: GENERAL: He is pleasant, he is resting in bed. He is watching TV. VITAL SIGNS: His most recent temperature is 37, blood pressure is 114/71, pulse is 93. SKIN: Anicteric. HEENT: Eyes show anicteric sclerae, though he continues to have slightly red faces from his radiation therapies. NECK: Supple, no adenopathy. CHEST: Clear. HEART: Regular rate and rhythm. ABDOMEN: Soft with good bowel sounds. Again, the PEG site is nontender with small amount of drainage. The bolster is not too tight against the skin. He has no rebound. EXTREMITIES: Warm with fair distal pulses. NEUROLOGIC: He is grossly intact. Alert and oriented x3. LABORATORY DATA: Show a white blood cell count of 12, hemoglobin of 11, platelet count of 326,000. IMPRESSION: Improving abscess at site of his PEG tube. At this point, I would continue antibiotics as you are doing. Certainly follow surgery's recommendations, but I would get an imaging study, possibly with Gastrografin through the PEG tube to definitively confirm that the PEG is positioned appropriately within the stomach before it is reused. I have discussed this with the patient. RAFA
[2017-07-17] MEDS: ENOXAPARIN 40 MG/0.4 ML SYR SQ SCH (20:00)
[2017-07-18] VITALS (8 sets, daily range): BP systolic 101–125; BP diastolic 68–78; PULSE 79–89; TEMP 36.6–37.1; O2SAT 95–98; Ht 175.3 cm; Wt 83.0 kg
[2017-07-18] MEDS: PIPERACILL/TAZOBAC IV 3.375 GM in DEXTROSE 5% 100ML 100 ML IV SCH ×2 (02:23→09:45)
[2017-07-18] MEDS: CHECK FENTANYL PATCH PLACEMENT SCH ×3 (02:23→16:04)
[2017-07-18] MEDS: VANCOMYCIN INJ 1,250 MG in SODIUM CHLORIDE 0.9% 250ML 250 ML IV SCH ×2 (02:29→09:45)
[2017-07-18 05:28] LABS: HEMATOCRIT 35.3 % (42-52); HEMOGLOBIN 11.4 g/dL (14.0-18.0); MEAN CELL VOLUME 86.7 fL (80-100); MEAN CORPUSCULAR HGB CONC 32.3 g/dl (32-36); MEAN PLATELET VOLUME 9.1 fL (7.4-10.4); PLATELET COUNT 350 K/uL (130-400); RED CELL DISTRIBUTION WIDTH CV 12.5 % (11.5-14.5); RED CELL DISTRIBUTION WIDTH SD 40.2 fL (36.4-46.3); WHITE BLOOD COUNT 8.19 K/uL (4.8-10.8)
[2017-07-18 05:53] LABS: CREATININE 0.75 mg/dl (0.60-1.40); POTASSIUM 4.1 mmol/L (3.5-5.1)
[2017-07-18] MEDS: INSULIN ASPART 100 UNITS/ML 3 ML PEN SC SCH ×2 (06:30→11:00)
--- NOTE | 2017-07-18 06:52 | Surgery Progress Note ---
Surgery Progress Note Date of Service Jul 18, 2017. Subjective + feeling well, + bowel movement, + flatus, + pain controlled, + diet ( Tolerating DM II diet), No complaints, No nausea, No vomiting Objective Vital Signs: Date Time Temp Pulse Resp B/P (MAP) Pulse Ox O2 Delivery O2 Flow Rate FiO2 07/18/17 04:07 36.6 89 20 119/75 (90) 96 Room Air 07/18/17 00:45 Room Air 07/17/17 23:38 36.8 87 18 109/76 (87) 95 Room Air 07/17/17 20:50 Room Air 07/17/17 19:56 37.1 91 18 114/76 (89) 95 Room Air 07/17/17 16:00 96 Room Air 07/17/17 15:51 37.0 93 20 114/71 (85) 95 Room Air 07/17/17 11:29 37.3 102 18 112/72 (85) 94 07/17/17 08:00 96 Room Air 07/17/17 07:52 36.9 101 18 112/75 (87) 96 Room Air General Appearance: WD/WN, no apparent distress Head: normocephalic, atraumatic Respiratory/Chest: no respiratory distress, no accessory muscle use Abdomen: non tender, non distended, soft, no organomegaly Incision(s): clean, intact, no erythema, drainage (Mild, serosanguinous, some dried in dressing as well) Laboratory Results: Results Past 24 Hours Test 07/17/17 07:36 07/17/17 09:13 07/17/17 11:19 07/17/17 16:25 Range/Units Bedside Glucose 128 165 168 70-99 mg/dl Vancomycin Level Trough 10.7 SEE COMMENT mcg/ml Test 07/17/17 20:04 07/18/17 05:13 Range/Units Bedside Glucose 156 70-99 mg/dl White Blood Count 8.19 4.8-10.8 K/uL Red Blood Count 4.07 4.7-6.1 M/uL Hemoglobin 11.4 14.0-18.0 g/dL Hematocrit 35.3 42-52 % Mean Corpuscular Volume 86.7 80-100 fL Mean Corpuscular Hemoglobin 28.0 25-34 pg Mean Corpuscular Hemoglobin Concent 32.3 32-36 g/dl RDW Standard Deviation 40.2 36.4-46.3 fL RDW Coefficient of Variation 12.5 11.5-14.5 % Platelet Count 350 130-400 K/uL Mean Platelet Volume 9.1 7.4-10.4 fL Sodium Level 136 136-145 mmol/L Potassium Level 4.1 3.5-5.1 mmol/L Chloride Level 99 98-107 mmol/L Carbon Dioxide Level 31 21-32 mmol/L Anion Gap 6.0 3-11 mmol/L Blood Urea Nitrogen 7 7-18 mg/dl Creatinine 0.75 0.60-1.40 mg/dl Est Creatinine Clear Calc Drug Dose 124.4 ml/min Estimated GFR () 128.4 Estimated GFR (Non- 110.8 BUN/Creatinine Ratio 9.3 10-20 Random Glucose 139 70-99 mg/dl Calcium Level 9.0 8.5-10.1 mg/dl Assessment & Plan postprocedural day #10 PEG tube placement - Infected PEG tube Doing well, tolerating PO feeds. +Flatus, +BM PEG in place, continue to flush daily. Per GI recommendations- imaging study with Gastrografin through the PEG tube to definitively confirm its position before reuse. WBC 8.19 today, afebrile - may transition to PO antibiotics. Continue medical management Please contact with questions or concerns. postprocedural day #9 PEG tube placement - Infected PEG tube Doing well, tolerating PO feeds. +Flatus, +BM PEG in place, continue to flush daily. WBC 12.14 this AM, down from 14.04 yesterday, afebrile. Continue IV antibiotics and medical management. May transition to PO antibiotics once WBC count Normalizes - repeat CBC in AM Please contact with questions or concerns.
[2017-07-18] MEDS ORDERED: NURSING VERBAL MED ORDER ONE (07:45)
[2017-07-18] MEDS: CHLORHEXIDINE GLUCONATE 0.12% 480 ML MT SCH (07:46)
[2017-07-18] MEDS: NYSTATIN SUSP 500,000 U/5 ML UDC PO SCH ×3 (07:46→16:30)
[2017-07-18] MEDS: VALSARTAN 80 MG TAB PO SCH (07:48)
[2017-07-18] MEDS: DOCUSATE SODIUM 100 MG CAP PO SCH (07:48)
[2017-07-18] MEDS: VITAMIN B COMPLEX TAB PO SCH (07:49)
[2017-07-18] MEDS: SENNA 8.6 MG TAB PO SCH (07:49)
[2017-07-18] MEDS ORDERED: FENTANYL 50 MCG/HR TDSY TD ONE (08:00)
[2017-07-18] MEDS ORDERED: FENTANYL PATCH REMOVE & WASTE SCH ×2 (08:59→19:59)
[2017-07-18] MEDS ORDERED: FENTANYL 50 MCG/HR TDSY TD SCH (09:00)
[2017-07-18] MEDS: BOOST GLUCOSE CONTROL PO SCH ×2 (09:46→13:45)
--- NOTE | 2017-07-18 12:05 | Clinical Documentation Query ---
GABRIEL Holder : CLINICAL DOCUMENTATION QUERY Patient is a 47 year old male admitted for "abdominal abscess around PEG tube". Please specify the affected tissues as appropriate as this impacts DRG assignment. Thank you. In your clinical opinion is this patient being managed for: ( ) Cutaneous abscess of abdominal wall ( ) Abdominopelvic abscess ( ) Abscess (of) omentum ( ) Abscess (of) peritoneum ( ) Mesenteric abscess ( ) Retrocecal abscess ( ) Subdiaphragmatic abscess ( ) Subhepatic abscess ( ) Subphrenic abscess ( ) Not Agree ( X ) Other explanation of clinical findings (Please Explain) - phlegmon of the left rectus abdominis muscle ( ) Unable to determine (Please Define) ( ) Need to Discuss The medical record reflects the following clinical findings, treatment, and risk factors. Clinical Indicators: As above Treatment: Surgical, GI consultation, IV antibiotics Risk Factors: Recent PEG placement. Please clarify and document your clinical opinion in the progress notes and discharge summary. Terms such as "probable", "suspected", "likely", "questionable", "possible", or "still to be ruled out" are acceptable. IF IN AGREEMENT, YOU MUST DOCUMENT ABOVE DIAGNOSTIC STATEMENT IN DAILY PROGRESS NOTES AND DISCHARGE SUMMARY. This document is not part of the patient's record. Thank You, Antoni Moore RN [phone]
--- NOTE | 2017-07-18 12:09 | Progress Note ---
Subjective Date of Service: Jul 18, 2017. Subjective Pt evaluation today including: conversation w/ patient, physical exam, lab review, review of studies, conversation w/ inside solar sales consultant, review of inpatient medication list Saw/examined the patient in room 408 He feels better PO intake PEG tube area doing better Review of Systems Constitutional: No fever, No chills, No weakness Respiratory: No shortness of breath Cardiac: No chest pain Abdomen: No pain, No nausea, No vomiting, No diarrhea, No constipation, No GI bleeding Medications Current Inpatient Medications Medications (Trade) Dose Ordered Sig/Berhane Route Start Time Stop Time Status Last Admin Dose Admin Enoxaparin Sodium (Lovenox Inj) 40 mg Q24H SQ 07/15/17 20:00 08/14/17 19:59 07/17/17 20:00 40 MG Ondansetron HCl (Zofran Inj) 4 mg Q6H PRN IV 07/15/17 17:15 08/14/17 17:14 Acetaminophen (Tylenol Tab) 650 mg Q6 PRN PO 07/15/17 17:30 08/14/17 17:29 Vitamin B Complex (Vitamin B Complex) 1 tab DAILY PO 07/16/17 08:00 08/15/17 07:59 07/18/17 07:49 1 TAB Chlorhexidine Gluconate (Peridex Oral Soln) 15 ml BID MT 07/15/17 20:00 08/14/17 19:59 07/18/17 07:46 15 ML Valsartan (Diovan Tab) 40 mg DAILY PO 07/16/17 08:00 08/15/17 07:59 07/18/17 07:48 40 MG Nystatin (Mycostatin Susp) 5 ml QID PO 07/15/17 20:00 07/29/17 19:59 07/18/17 11:39 5 ML Miscellaneous Information (Check Fentanyl Patch Placement) 1 ea QS N/A 07/16/17 00:00 08/15/17 00:00 07/18/17 07:46 1 EA Piperacillin Sod/ Tazobactam Sod 3.375 gm/Dextrose 115 ml @ 28.75 mls/ hr Q8H IV 07/16/17 02:00 07/25/17 23:59 07/18/17 09:45 28.75 MLS/HR Piperacillin Sod/ Tazobactam Sod (Consult) 1 ea UD PRN N/A 07/15/17 18:00 08/14/17 17:59 Vancomycin HCl (Consult) 1 ea UD PRN N/A 07/15/17 18:00 08/14/17 17:59 Insulin Aspart (novoLOG ASPART) SLIDING SCALE G... ACHS SC 07/15/17 21:00 08/14/17 20:59 07/16/17 13:23 4 UNITS Glucose (Glucose 40% Gel) 15-30 GRAMS 15 GRAMS... UD PRN PO 07/15/17 19:30 08/14/17 19:29 Glucose (Glucose Chew Tab) 4-8 Tablets 4 Tabl... UD PRN PO 07/15/17 19:30 08/14/17 19:29 Dextrose (Dextrose 50% 50ML Syringe) 25-50ML OF 50% DW IV FOR... UD PRN IV 07/15/17 19:30 08/14/17 19:29 Glucagon (Glucagon Inj) 1 mg UD PRN SQ 07/15/17 19:30 08/14/17 19:29 Enteral Nutritional Formula (Boost Glucose Control) 1 can TID@1000,1400,2100 PO 07/16/17 14:00 08/15/17 13:59 07/18/17 09:46 1 CAN Docusate Sodium (coLACE CAP) 100 mg BID PO 07/16/17 20:00 08/15/17 19:59 07/18/17 07:48 100 MG Senna (Senokot Tab) 8.6 mg QAM PO 07/17/17 08:00 08/16/17 07:59 07/18/17 07:49 8.6 MG Vancomycin HCl 1250 mg/Sodium Chloride 275 ml @ 125 mls/hr Q8H IV 07/17/17 18:00 07/25/17 17:59 07/18/17 09:45 125 MLS/HR Fentanyl (Duragesic Patch) 50 mcg Q3D@0900 TD 07/18/17 09:00 08/01/17 08:59 Future hold Miscellaneous (Fentanyl Patch Remove & Waste) 1 ea Q3D@0859 N/A 07/18/17 08:59 08/17/17 08:58 07/18/17 07:50 1 EA Objective Vital Signs Date Time Temp Pulse Resp B/P (MAP) Pulse Ox O2 Delivery O2 Flow Rate FiO2 07/18/17 11:51 36.9 79 18 101/68 (79) 95 Room Air 07/18/17 10:40 36.9 87 16 125/78 97 07/18/17 08:00 98 Room Air 07/18/17 07:32 37.1 81 16 112/75 (87) 98 07/18/17 04:07 36.6 89 20 119/75 (90) 96 Room Air 07/18/17 00:45 Room Air 07/17/17 23:38 36.8 87 18 109/76 (87) 95 Room Air 07/17/17 20:50 Room Air 07/17/17 19:56 37.1 91 18 114/76 (89) 95 Room Air 07/17/17 16:00 96 Room Air 07/17/17 15:51 37.0 93 20 114/71 (85) 95 Room Air Physical Exam General Appearance: no apparent distress Respiratory/Chest: no respiratory distress, no accessory muscle use Abdomen: normal bowel sounds, non tender, soft, + pertinent finding (mildly warm, no longer erythematous, area is soft) Laboratory Results Last 24 Hours Test 07/17/17 16:25 07/17/17 20:04 07/18/17 05:13 07/18/17 07:44 Bedside Glucose 168 mg/dl 156 mg/dl 136 mg/dl White Blood Count 8.19 K/uL Red Blood Count 4.07 M/uL Hemoglobin 11.4 g/dL Hematocrit 35.3 % Mean Corpuscular Volume 86.7 fL Mean Corpuscular Hemoglobin 28.0 pg Mean Corpuscular Hemoglobin Concent 32.3 g/dl RDW Standard Deviation 40.2 fL RDW Coefficient of Variation 12.5 % Platelet Count 350 K/uL Mean Platelet Volume 9.1 fL Sodium Level 136 mmol/L Potassium Level 4.1 mmol/L Chloride Level 99 mmol/L Carbon Dioxide Level 31 mmol/L Anion Gap 6.0 mmol/L Blood Urea Nitrogen 7 mg/dl Creatinine 0.75 mg/dl Est Creatinine Clear Calc Drug Dose 124.4 ml/min Estimated GFR () 128.4 Estimated GFR (Non- 110.8 BUN/Creatinine Ratio 9.3 Random Glucose 139 mg/dl Calcium Level 9.0 mg/dl Test 07/18/17 11:36 Bedside Glucose 197 mg/dl Assessment and Plan This is a 47 year old male with a PMH of tongue cancer s/p resection and ongoing radiation s/p reconstructive surgery to the tongue and also 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 (Augmentin) today will likely need imaging to make sure PEG tube is in the correct position, GI for further input d/c today or in AM 07/17 appreciate general surgery input continue IV abx. monitor CBC switch to orals in 1-2 days and discharge home 07/16 CT of the abdomen shows possible cellulitis vs. abscess around the area currently tolerating PO diet we will hold off on using the PEG tube for now IV Vanco + Zosyn cultures pending appreciate GI and general surgery input possible CT abdomen/pelvis with IV contrast if surgery suggests it HTN continue Diovan; BP stable DM2 insulin sliding scale; BSGs are stable DVT ppx Lovenox FULL CODE
--- NOTE | 2017-07-18 14:07 | Gastroenterology Progress Note ---
Progress Note Date of Service: Jul 18, 2017 Subjective Pt evaluation today including: conversation w/ patient, physical exam, chart review, lab review, review of studies, review of inpatient medication list Mr. Toney is a 47 yr old male with head and neck cancer, post surgery, undergoing radiation treatment. He experienced julita and dysphagia and underwent PEG on 07/07 and was admitted here on 07/16 for infection at the PEG tube site. Now able to eat po again. PEG tube left in place, being flushed but not used for feedings or meds. On Zosyn and Vanco here. Pt feels well and would like to be discharged today. Review of Systems Constitutional: + fever (on admission, now resolved) ENT: No hearing loss Cardiac: No chest pain Abdomen: + pain (on admission, now resolved) Musculoskeletal: No joint pain Male : No dysuria Neuro: No memory loss Psych: No depression symptoms Endo: No fatigue Medications Current Inpatient Medications Medications (Trade) Dose Ordered Sig/Berhane Route Start Time Stop Time Status Last Admin Dose Admin Enoxaparin Sodium (Lovenox Inj) 40 mg Q24H SQ 07/15/17 20:00 08/14/17 19:59 07/17/17 20:00 40 MG Ondansetron HCl (Zofran Inj) 4 mg Q6H PRN IV 07/15/17 17:15 08/14/17 17:14 Acetaminophen (Tylenol Tab) 650 mg Q6 PRN PO 07/15/17 17:30 08/14/17 17:29 Vitamin B Complex (Vitamin B Complex) 1 tab DAILY PO 07/16/17 08:00 08/15/17 07:59 07/18/17 07:49 1 TAB Chlorhexidine Gluconate (Peridex Oral Soln) 15 ml BID MT 07/15/17 20:00 08/14/17 19:59 07/18/17 07:46 15 ML Valsartan (Diovan Tab) 40 mg DAILY PO 07/16/17 08:00 08/15/17 07:59 07/18/17 07:48 40 MG Nystatin (Mycostatin Susp) 5 ml QID PO 07/15/17 20:00 07/29/17 19:59 07/18/17 11:39 5 ML Miscellaneous Information (Check Fentanyl Patch Placement) 1 ea QS N/A 07/16/17 00:00 08/15/17 00:00 07/18/17 07:46 1 EA Piperacillin Sod/ Tazobactam Sod 3.375 gm/Dextrose 115 ml @ 28.75 mls/ hr Q8H IV 07/16/17 02:00 07/25/17 23:59 07/18/17 09:45 28.75 MLS/HR Piperacillin Sod/ Tazobactam Sod (Consult) 1 ea UD PRN N/A 07/15/17 18:00 08/14/17 17:59 Vancomycin HCl (Consult) 1 ea UD PRN N/A 07/15/17 18:00 08/14/17 17:59 Insulin Aspart (novoLOG ASPART) SLIDING SCALE G... ACHS SC 07/15/17 21:00 08/14/17 20:59 07/16/17 13:23 4 UNITS Glucose (Glucose 40% Gel) 15-30 GRAMS 15 GRAMS... UD PRN PO 07/15/17 19:30 08/14/17 19:29 Glucose (Glucose Chew Tab) 4-8 Tablets 4 Tabl... UD PRN PO 07/15/17 19:30 08/14/17 19:29 Dextrose (Dextrose 50% 50ML Syringe) 25-50ML OF 50% DW IV FOR... UD PRN IV 07/15/17 19:30 08/14/17 19:29 Glucagon (Glucagon Inj) 1 mg UD PRN SQ 07/15/17 19:30 08/14/17 19:29 Enteral Nutritional Formula (Boost Glucose Control) 1 can TID@1000,1400,2100 PO 07/16/17 14:00 08/15/17 13:59 07/18/17 13:45 1 CAN Docusate Sodium (coLACE CAP) 100 mg BID PO 07/16/17 20:00 08/15/17 19:59 07/18/17 07:48 100 MG Senna (Senokot Tab) 8.6 mg QAM PO 07/17/17 08:00 08/16/17 07:59 07/18/17 07:49 8.6 MG Vancomycin HCl 1250 mg/Sodium Chloride 275 ml @ 125 mls/hr Q8H IV 07/17/17 18:00 07/25/17 17:59 07/18/17 09:45 125 MLS/HR Fentanyl (Duragesic Patch) 50 mcg Q3D@0900 TD 07/18/17 09:00 08/01/17 08:59 Future hold Miscellaneous (Fentanyl Patch Remove & Waste) 1 ea Q3D@0859 N/A 07/18/17 08:59 08/17/17 08:58 07/18/17 07:50 1 EA Objective Vital Signs Date Time Temp Pulse Resp B/P (MAP) Pulse Ox O2 Delivery O2 Flow Rate FiO2 07/18/17 11:51 36.9 79 18 101/68 (79) 95 Room Air 07/18/17 10:40 36.9 87 16 125/78 97 07/18/17 08:00 98 Room Air 07/18/17 07:32 37.1 81 16 112/75 (87) 98 07/18/17 04:07 36.6 89 20 119/75 (90) 96 Room Air 07/18/17 00:45 Room Air 07/17/17 23:38 36.8 87 18 109/76 (87) 95 Room Air 07/17/17 20:50 Room Air 07/17/17 19:56 37.1 91 18 114/76 (89) 95 Room Air 07/17/17 16:00 96 Room Air 07/17/17 15:51 37.0 93 20 114/71 (85) 95 Room Air Physical Exam General Appearance: no apparent distress Respiratory/Chest: lungs clear, normal breath sounds Cardiovascular: no murmur Abdomen: soft, + mass (palpable firmness w/o descrete mass above and to the left side of the PEG tube site. ), + pertinent finding Extremities: no pedal edema Neurologic/Psych: alert, normal mood/affect, oriented x 3 Skin: no jaundice Laboratory Results Last 24 Hours Test 07/17/17 16:25 07/17/17 20:04 07/18/17 05:13 07/18/17 07:44 Bedside Glucose 168 mg/dl 156 mg/dl 136 mg/dl White Blood Count 8.19 K/uL Red Blood Count 4.07 M/uL Hemoglobin 11.4 g/dL Hematocrit 35.3 % Mean Corpuscular Volume 86.7 fL Mean Corpuscular Hemoglobin 28.0 pg Mean Corpuscular Hemoglobin Concent 32.3 g/dl RDW Standard Deviation 40.2 fL RDW Coefficient of Variation 12.5 % Platelet Count 350 K/uL Mean Platelet Volume 9.1 fL Sodium Level 136 mmol/L Potassium Level 4.1 mmol/L Chloride Level 99 mmol/L Carbon Dioxide Level 31 mmol/L Anion Gap 6.0 mmol/L Blood Urea Nitrogen 7 mg/dl Creatinine 0.75 mg/dl Est Creatinine Clear Calc Drug Dose 124.4 ml/min Estimated GFR () 128.4 Estimated GFR (Non- 110.8 BUN/Creatinine Ratio 9.3 Random Glucose 139 mg/dl Calcium Level 9.0 mg/dl Test 07/18/17 11:36 Bedside Glucose 197 mg/dl Assessment and Plan Mr. Toney is a 47 yr old male with a PEG with abscess. Plan: 1. PEG was slightly snug against the skin and was pulled back to 4.5 at the skin by Dr. White. 2. Antibiotic such as Augmentin for 10 days. 3. No further imaging needed as CT on arrival verified correct PEG tube placement (per Dr. White). 4. Continue water flushes daily. 5. OK to use for PEG tube feedings as well if pt's dysphagia worsens and unable to take an adequate amt of po nutrition. 6. Pt to call if purulent DC or skin redness around the PEG site. 7. No GI contraindication to DC. ATTESTATION: I have performed a history and physical examination of this patient and reviewed the electronic record. Specifically, on physical examination there is no erythema at the PEG site, although there is induration. I have discussed the case with STEPHANIE Marion. The above note reflects my findings, conclusions , and recommendations. Edgardo White MD
[2017-07-18] MEDS ORDERED: NUTR-7 PO (16:43)
[2017-07-18] MEDS ORDERED: AMOX875T PO (16:43)
[2017-07-18] MEDS ORDERED: CLC100 PO (16:43)
--- NOTE | 2017-07-18 16:46 | Discharge Instructions ---
Discharge Instructions Date of Service Jul 18, 2017. Admission Reason for Admission: Infected Peg Tube, Head And Neck Cancer Discharge Discharge Diagnosis / Problem: Infected PEG tube, abscess Discharge Goals Goal(s): Decrease discomfort, Improve function, Diagnostic testing, Therapeutic intervention Activity Recommendations Activity Limitations: resume your previous activity . Instructions / Follow-Up Instructions / Follow-Up Please follow-up with your primary care doctor within the week * You will be discharged with Augmentin (antibiotic) for 10 days, take this twice a day for your abdominal infection * Continue ongoing radiation Current Hospital Diet Patient's current hospital diet: Diabetes Type 2 Diet Discharge Diet Recommended Diet: Diabetes Type 2 Diet Pending Studies Studies pending at discharge: no Medical Emergencies . Who to Call and When: Medical Emergencies: If at any time you feel your situation is an emergency, please call 911 immediately. . Non-Emergent Contact Non-Emergency issues call your: Primary Care Provider, Oncologist . . "Provider Documentation" section prepared by Walker Forte. . VTE Core Measure Inpt VTE Proph given/why not?: Enoxaparin (Lovenox)SQ
--- NOTE | 2017-07-18 16:49 | Discharge Summary ---
Discharge Summary Date of Service Jul 18, 2017. Discharge Summary Admission Date: Jul 15, 2017 at 16:13 Discharge Date: Jul 18, 2017 Discharge Disposition: Home Principal Diagnosis: Infected PEG Tube Abscess of L Rectus Abdominis muscle Medication Reconciliation New Medications: Amoxicillin & Pot Clavulanate (Augmentin 875-125 mg) 1 Tab Tab 1 TAB PO BID for 10 Days, #20 TAB Docusate Sodium (Docusate Sodium) 100 Mg Cap 100 MG PO BID for 30 Days, #60 CAP Nutritional Supplements (Boost) 1 Liq Liq 1 CAN PO TID@1000,1400,2100 for 30 Days, #90 CAN Continued Medications: Acetaminophen Tab (Tylenol) 325 Mg Tab 650 MG PO Q6 PRN for Pain, TAB B-Complex Vitamins (B Complex) 1 Cap Cap 1 CAP PO DAILY Chlorhexidine Gluconate (Mouth (Peridex) 0.12 % Jessi 15 ML PO BID for 30 Days, #946 ML Fentanyl (Duragesic) 50 Mcg Tdsy 50 MCG TD [id number], PATCH Metformin Hcl (Glucophage Ext Rel) 1,000 Mg Tab 1000 MG PO BID, TAB Sitagliptin Phosphate (Januvia) 100 Mg Tab 100 MG PO DAILY, TAB Valsartan (Diovan) 40 Mg Tab 1 TAB PO DAILY for 90 Days, #90 TAB 1 Refill [nystatin ] () 1 DOSE QID swish and swallow Admission Information HPI (per Admitting provider): DATE OF ADMISSION: 07/15/2017 PRIMARY CARE PROVIDER: Dr. Ribeiro CHIEF COMPLAINT: PEG tube associated abscess. HISTORY OF PRESENT COMPLAINT: He is a 47-year-old male with significant past medical history including diagnosis of tongue cancer in March of this year status post reconstructive surgery and ongoing chemotherapy and also diabetes and hypertension, apparently he has had a PEG tube placement last at [facility] for ongoing weight loss. He has been having complaining of some bloatiness after food since the PEG tube has been placed in. He has had checked the PEG tube site quite a few times since it was placed in. He was seen by GI as an outpatient last Tuesday, at that time the PEG tube was adjusted, as per the length, but his symptoms has not undergone any better. He complains to have ongoing bloatiness after food and noted to have some drain is coming out alongside the PEG tube placement. He was at the radiation department today and there, he was again seen by GI and noted to have pus coming out around the PEG tube with a probable localized abscesses. From that point, he was advised admission. He also mentioned to have some temperature since this morning, but no nausea and/or vomiting. He denies to have any other symptoms at this time. PAST MEDICAL HISTORY: Significant for tongue cancer, diagnosed in March of this year, status post reconstructive surgery and ongoing radiation since then, he has had radiation; has diabetes and hypertension. PAST SURGICAL HISTORY: Significant for reconstructive surgery of the tongue for tongue cancer, PEG tube placement last . FAMILY HISTORY: Significant that mother has diabetes and hypertension and had pancreatic cancer. SOCIAL HISTORY: He is . He has 2 children. He does not smoke and does not drink and he has been reasonably ambulant. ALLERGIES: NKDA. MEDICATIONS: As an outpatient - he has been on metformin 1000 mg b.i.d., Januvia 100 mg daily, Tylenol as directed, B complex 1 cap daily, Peridex 15 mL b.i.d. orally, fentanyl 50 mcg every 72 hours, Diovan 40 mg daily, and nystatin as directed. REVIEW OF SYSTEMS: Other systems reviewed are unremarkable except for those mentioned in history of present complaint. PHYSICAL EXAMINATION: GENERAL: On examination on the medical floor, he was not having any acute distress. VITAL SIGNS: Not yet noted, but unremarkable. HEENT: Typical for swelling of bilaterally upper neck with minimal tenderness. Oral cavity not examined but has thrush. CHEST: Clear to auscultate bilaterally. HEART: S1, S2 regular. ABDOMEN: Soft. PEG tube site was leaking with a serosanguineous and pus hematuria, localized tenderness around, no redness. Bowel sounds present. EXTREMITIES: Negative. MUSCULOSKELETAL: Did not show any acute arthritis. CENTRAL NERVOUS SYSTEM: He is alert, awake, oriented x3. LABORATORY AND IMAGING DATA: Noted today: His CBC noted today was white count 19.42, H&H 12.8/37.7, platelets 406. PRP, LFT, PT/INR, EKG, chest x-ray and CT of the abdomen is pending. IMPRESSION AND PLAN: 1. Abdominal abscess associated with PEG tube site. He was started with intravenous vancomycin and Zosyn. He will have a CAT scan with contrast to evaluate the area further and surgical consultation for probable drainage and GI consultation to probable changing of the PEG tube down the line. The blood culture will be taken as well. 2. Diabetes. His oral medications will be on hold. He will be put on sliding scale insulin coverage while in the hospital. 3. Hypertension. We will continue with his usual blood pressure medications. 4. Deep venous thrombosis prophylaxis with Lovenox. 5. Gastrointestinal prophylaxis with Maalox, Mylanta as needed. 6. Code status. He will be a full code. In my clinical judgment, the beneficiary meets criteria as per CMS for 2-midnight stay in the hospital. 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 (Augmentin) today will likely need imaging to make sure PEG tube is in the correct position, GI for further input d/c today or in AM 07/17 appreciate general surgery input continue IV abx. monitor CBC switch to orals in 1-2 days and discharge home 07/16 CT of the abdomen shows possible cellulitis vs. abscess around the area currently tolerating PO diet we will hold off on using the PEG tube for now IV Vanco + Zosyn cultures pending appreciate GI and general surgery input possible CT abdomen/pelvis with IV contrast if surgery suggests it HTN continue Diovan; BP stable DM2 insulin sliding scale; BSGs are stable DVT ppx Lovenox FULL CODE Total time spent on discharge = 35 minutes This includes examination of the patient, discharge planning, medication reconciliation, and communication with other providers. Discharge Instructions Please follow-up with your primary care doctor within the week * You will be discharged with Augmentin (antibiotic) for 10 days, take this twice a day for your abdominal infection * Continue ongoing radiation
== END 2017-07-18 18:32 | disposition home health service (06) | DRG 394 ==
LOC: C.4E 16:13
PROVIDERS: ADMIT Internal Medicine; ATTEND Family Medicine
DX: K94.22 Gastrostomy infection (principal); L02.211 Cutaneous abscess of abdominal wall; Y73.2 Prosthetic and other implants, materials and accessory gastroenterology and urology devices associated with adverse incidents; C02.9 Malignant neoplasm of tongue, unspecified; I10 Essential (primary) hypertension; E11.9 Type 2 diabetes mellitus without complications; Z79.84 Long term (current) use of oral hypoglycemic drugs; Z79.899 Other long term (current) drug therapy

== ENCOUNTER → 2017-09-14 | Outpatient (CLI) | payer BC ==
[~2017-09-14] MED LIST changes: +ACETAMINOPHEN PO; +CLC100 PO; +CODEINE PO; +DOCU-94 PO; +NAPR1TAB9 PO; +NUTR-7 PO
[2017-09-14 14:37] VITALS: BP 135/89; PULSE 95; TEMP 36.7; O2SAT 96
--- NOTE | 2017-09-14 16:14 | Radiation Oncology Follow-Up ---
Radiation Oncology Follow-Up Date of Visit Sep 14, 2017. Reason For Visit One-month follow-up in cancer survivorship care plan Radiation Completion Date finished 08-04-2017 Diagnosis (1) Tongue cancer Status: Acute Onset Date: 04/01/2017 Location: Right tongue and tonsil Histology Subtype: Squamous cell carcinoma Permanent Comment: Recurrent thrush and finding of a right tongue lesion Status post biopsy 04/01/2017 revealing invasive squamous cell carcinoma ( ) Status post right partial glossectomy with right partial oral pharyngectomy and right partial floor of mouth resection with selective neck dissection followed by reconstruction 05/09/2017. (Dr. Ariella Dickinson) Stage pT3 pN0M0 Status post completion of radiation therapy 08/04/2017 received 6600 cGy Last Edited By: Parisa Hernandez on Aug 15, 2017 17:11 History of Present Illness Mr. Toney initially presented to an urgent care clinic for thrush. The patient was treated with Mycelex Diflucan and did not have any improvement in his symptoms overall. The patient was then seen by Dr. Villegas from ENT initially evaluated in February 2017 the patient who recommended a close follow-up evaluation. The patient was then seen back in March 2017 and recommended a biopsy given the fact that the patient continued to have a lesion involving his right tongue. The patient underwent a biopsy of the right posterior one third of the tongue on 04/01/[address] Villegas which confirmed invasive squamous cell carcinoma and the tumor was positive for HPV 16/18. During the procedure, Dr. Villegas did describe the mass is a 2.5 cm ulceration involving the right tongue. The patient did have a CT of the neck on 04/07/2017 which revealed: "Heterogeneous asymmetry density within the right posterior tongue base which could represent a tongue lesion not well assessed. Prominent nasopharyngeal soft tissues and palatine tonsil suggesting lymphoid hyperplasia. Mildly prominent lymph nodes in the right jugulodigastric chain superiorly, anterior mandibular and submental regions which could be reactive or postinflammatory. Hypodense posterior mid left thyroid nodule 0.7 x 0.7 cm size for which ultrasound left correlation suggested." The patient was referred to Dr. Ariella Dickinson from ENT for [facility] [place]. Dr. Dickinson recommended completion of the staging workup which included a CT of the thorax completed on 04/29/2017 which did not reveal any evidence of distant metastatic disease. The patient then underwent a right partial glossectomy with right partial oral pharyngectomy and right partial floor of mouth resection with a selective neck dissection followed by reconstruction on 05/09/[address] Ariella Dickinson and Dr. Pablo Bonner. Pathology revealed squamous cell carcinoma primarily involving the right base of tongue and including the lingula tonsil and extending to the right lateral tongue which measured 4.1 cm in the greatest dimension. The margins were negative for invasive carcinoma in the closest margin was 1 mm from the ventral margin. There was no evidence of lymphovascular space invasion, perineural invasion. The tumor was p16 positive. Additionally, 51 lymph nodes were resected and they were all negative for metastatic carcinoma. The patient was staged as pathologic T3N0, stage III. Dr. Dickinson was concerned about local recurrence regarding the primary tumor due to the close ventral margin, larger tumor size and " aggressive pattern of invasion with nests" and therefore recommended adjuvant radiation therapy. We are now seeing the patient in consultation to discuss role of radiation therapy. He underwent CT simulation. He then completed radiation therapy 08/04/2017. He received 6600 cGy Interim History He has been doing well over the past month. He has had steady improvement of his quality of taste. He feels his taste has returned to 50%. He is increasing p.o. intake. He does continue use 3 cans of nutrition a day via the PEG tube. His weight is steadily improved. He feels his tongue is completely healed other than one small area of the lateral left side. He has had no issues with thrush of late. If there is soreness he uses the Magic mouthwash. He had been previously on fentanyl patch. This was steadily decreased and discontinued. He now only uses a oxycodone at bedtime periodically. He plans to discontinue this also and using Tylenol PM. He is following with occupational therapy. He has not ulnar nerve palsy on the side where the graft was taken. They are working with him to help improve strength and is also given him a brace for his fifth finger. He has been followed at the lymphedema therapy. There is been recommendation for a treatment device. Today we completed a letter to help with insurance coverage for this device. He has been seen in follow-up by Dr. Dickinson as well as ENT. Allergies Coded Allergies: No Known Allergies (Unverified , 06/01/17) Home Medications Scheduled B-Complex Vitamins (B Complex), 1 CAP PO DAILY Chlorhexidine Gluconate (Mouth (Peridex), 15 ML PO BID Metformin Hcl (Glucophage Ext Rel), 1,000 MG PO BID Nutritional Supplements (Boost), 1 CAN PO TID@1000,1400,2100 Sitagliptin Phosphate (Januvia), 100 MG PO DAILY Scheduled PRN Acetaminophen Tab (Tylenol), 650 MG PO Q6 PRN for Pain Docusate Sodium (Colace), 1 CAP PO BID PRN for Constipation Naproxen (Aleve), 220 MG PO Q6 PRN for Moderate Pain Valsartan (Diovan), 1 TAB PO DAILY PRN for Documentation [tyenol with codeine], 15 ML PO Q6 PRN for Moderate Pain Review of Systems Gastrointestinal: Symptoms: WNL Oral: Symptoms: Scant Saliva/Dry Mouth Other Oral Symptoms: " radiation burn on left side of tongue " Respiratory: Symptoms: WNL Urinary: Symptoms: WNL Skin: Symptoms: No Problems Other Skin Symptoms: "left arm is healing from the graft site " Physical Exam Vital Signs Date Time Temp Pulse Resp B/P (MAP) Pulse Ox O2 Delivery O2 Flow Rate FiO2 09/14/17 14:37 36.7 95 20 135/89 96 Fatigue: None General Appearance: no apparent distress Eyes: normal inspection, EOMI ENT: hearing grossly normal, + pertinent finding (Mouth reveals postoperative changes with the tongue graft showing no areas of white plaque or ulceration. There is mild erythema of the tongue. There are no visible lesions on the tongue, floor of the mouth, or buccal mucosa. He has good movement of the tongue from side to side. He does have mild trismus.) Neck: no adenopathy, + pertinent finding (There are postoperative changes and he has sub-mental edema.) Respiratory/Chest: lungs clear, no respiratory distress, no accessory muscle use Cardiovascular: regular rate, rhythm, no gallop, no murmur Extremities: no pedal edema Neurologic/Psychiatric: no motor/sensory deficits, alert, normal mood/affect Skin: warm/dry Pain Management Patient Reports Pain: No Side: Bilateral Patient Preferred Pain Scale: 0 - 10 Initial Pain Intensity: 0.0 Pain Management Plan He denies pain currently and requires no pain management. He does have some pain at bedtime. He uses an oxycodone and plans to convert to Advil PM. Laboratory Laboratory Results: not applicable Pathology Pathology Results: not applicable Imaging Imaging Studies: not applicable Assessment & Plan Plan: He was seen and examined by Dr. Foley. Dr. Dickinson will be scheduling him for a PET CT in November. She will continue follow-up with ENT and his primary care physician. Continue to convert over to p.o. nutrition. We have instructed him to call our office should he feel he is doing well enough to have the PEG tube removed. We asked him to return to our office in 6 months. He may call if he has any questions or concerns in the interim. Today we completed the cancer survivorship care plan. A copy of the document was given to the patient. He was given over survivorship booklet. Assessment & Plan (Attending) I agree with note created by Parisa Hernandez PA-C. I reviewed the patient's chart and information with her. I have examined and evaluated the patient. I reviewed relevant clinical information and answered the patient's and/or family' s questions. TUTORING CLINICIAN Total Time In Follow-Up I spent 20 minutes speaking to the patient and performing examination. I spent 20 minutes reviewing information, preparing the survivorship document, and completing this note. AK Total Time (Attending) In Follow-Up I spent 15 minutes examining and counseling the patient. TUTORING CLINICIAN Copy To Ariella Dickinson M.D.; Dao Villegas M.D.; AYAZ MENDOZA
== END | disposition home or self-care (01) ==
LOC: C.ONC 14:25
PROVIDERS: ATTEND Physician Assistant Medical
DX: Z08 Encounter for follow-up examination after completed treatment for malignant neoplasm (principal); Z92.3 Personal history of irradiation; Z85.810 Personal history of malignant neoplasm of tongue

== ENCOUNTER → 2018-02-23 | Outpatient (CLI) | payer BC ==
[~2018-02-23] MED LIST changes: -CLC100 PO; -FNTTP50 TD; -nystatin
[2018-02-23 07:52] VITALS: BP 114/78; PULSE 88; TEMP 36.6; O2SAT 98
--- NOTE | 2018-02-23 09:13 | Radiation Oncology Follow-Up ---
Radiation Oncology Follow-Up Date of Visit Feb 23, 2018. Reason For Visit 6 month follow up Radiation Completion Date finished 08-04-2017 Diagnosis (1) Tongue cancer Status: Resolved Onset Date: 04/01/2017 Location: Right tongue and tonsil Histology Subtype: Squamous cell Stage: lll Permanent Comment: Recurrent thrush and finding of a right tongue lesion Status post biopsy 04/01/2017 revealing invasive squamous cell carcinoma ( ) Status post right partial glossectomy with right partial oral pharyngectomy and right partial floor of mouth resection with selective neck dissection followed by reconstruction 05/09/2017. (Dr. Ariella Dickinson) Stage pT3 pN0M0 Status post completion of radiation therapy 08/04/2017 received 6600 cGy Last Edited By: Parisa Hernandez on Aug 15, 2017 17:11 History of Present Illness Mr. Toney initially presented to an urgent care clinic for thrush. The patient was treated with Mycelex Diflucan and did not have any improvement in his symptoms overall. The patient was then seen by Dr. Villegas from ENT initially evaluated in February 2017 the patient who recommended a close follow-up evaluation. The patient was then seen back in March 2017 and recommended a biopsy given the fact that the patient continued to have a lesion involving his right tongue. The patient underwent a biopsy of the right posterior one third of the tongue on 04/01/[address] Villegas which confirmed invasive squamous cell carcinoma and the tumor was positive for HPV 16/18. During the procedure, Dr. Villegsa did describe the mass is a 2.5 cm ulceration involving the right tongue. The patient did have a CT of the neck on 04/07/2017 which revealed: "Heterogeneous asymmetry density within the right posterior tongue base which could represent a tongue lesion not well assessed. Prominent nasopharyngeal soft tissues and palatine tonsil suggesting lymphoid hyperplasia. Mildly prominent lymph nodes in the right jugulodigastric chain superiorly, anterior mandibular and submental regions which could be reactive or postinflammatory. Hypodense posterior mid left thyroid nodule 0.7 x 0.7 cm size for which ultrasound left correlation suggested." The patient was referred to Dr. Ariella Dickinson from ENT for [facility]. Dr. Dickinson recommended completion of the staging workup which included a CT of the thorax completed on 04/29/2017 which did not reveal any evidence of distant metastatic disease. The patient then underwent a right partial glossectomy with right partial oral pharyngectomy and right partial floor of mouth resection with a selective neck dissection followed by reconstruction on 05/09/[address] Ariella Dickinson and Dr. Pablo Bonner. Pathology revealed squamous cell carcinoma primarily involving the right base of tongue and including the lingula tonsil and extending to the right lateral tongue which measured 4.1 cm in the greatest dimension. The margins were negative for invasive carcinoma in the closest margin was 1 mm from the ventral margin. There was no evidence of lymphovascular space invasion, perineural invasion. The tumor was p16 positive. Additionally, 51 lymph nodes were resected and they were all negative for metastatic carcinoma. The patient was staged as pathologic T3N0, stage III. Dr. Dickinson was concerned about local recurrence regarding the primary tumor due to the close ventral margin, larger tumor size and " aggressive pattern of invasion with nests" and therefore recommended adjuvant radiation therapy. We are now seeing the patient in consultation to discuss role of radiation therapy. He underwent CT simulation. He then completed radiation therapy 08/04/2017. He received 6600 cGy Interim History He has been doing well over the past 6 months. He denies any difficulty with taste. He denies xerostomia. He is having no difficulty with swallowing. There is no discomfort in the neck or shoulders. He completed lymphedema therapy. He received this weekly throughout the summer. He now has a flex touch machine and completes his lymphedema therapy at home. This has a vest and a collar. When he wears the vest this takes 43 minutes. When he uses a collar this takes 18 minutes. He has been seen in follow-up by the reconstructive surgeon on February 10. He had an NPL examination. He is also had a recheck PET scan. There has been no sign of recurrence. He denies fatigue. Allergies Coded Allergies: No Known Allergies (Unverified , 06/01/17) Home Medications Scheduled B-Complex Vitamins (B Complex), 1 CAP PO DAILY Scheduled PRN Acetaminophen Tab (Tylenol), 650 MG PO Q6 PRN for Pain Naproxen (Aleve), 220 MG PO Q6 PRN for Moderate Pain Review of Systems Gastrointestinal: Symptoms: WNL Oral: Symptoms: No Problems Respiratory: Symptoms: WNL Urinary: Symptoms: WNL Skin: Symptoms: No Problems Physical Exam Vital Signs Date Time Temp Pulse Resp B/P (MAP) Pulse Ox O2 Delivery O2 Flow Rate FiO2 02/23/18 07:52 36.6 88 18 114/78 98 Fatigue: None General Appearance: no apparent distress Eyes: normal inspection, EOMI ENT: hearing grossly normal, + pertinent finding (Postoperative changes of the right tongue and pharynx. There are no visible lesions. There are no signs of recurrence. Mild dryness of the mouth.) Neck: no adenopathy, thyroid normal, + pertinent finding (Postoperative changes of the right neck. He has full range of motion of the neck. There are no masses or tenderness.) Respiratory/Chest: lungs clear, no respiratory distress, no accessory muscle use Cardiovascular: regular rate, rhythm, no gallop, no murmur Extremities: no pedal edema, + pertinent finding (Mild decreased range of motion with shrugging of shoulders.) Neurologic/Psychiatric: no motor/sensory deficits, alert, normal mood/affect Skin: warm/dry Pain Management Patient Reports Pain: No Side: Bilateral Patient Preferred Pain Scale: 0 - 10 Initial Pain Intensity: 0.0 Pain Management Plan He denies pain therefore requires no pain management. Laboratory Laboratory Results: not applicable Pathology Pathology Results: were reviewed, and pertinent findings noted in HPI Imaging Imaging Studies: were reviewed, and pertinent findings noted below Imaging Comments He had a CT scan and PET scan November 15, 2017. Postsurgical changes of the right basilar tongue resection and radical free flap reconstruction without evidence of metabolically activity recurrence or metastatic disease. Assessment & Plan Plan: Patient was seen and examined by Dr. Foley. He continues regular follow- up with ENT at [place]. He continues with the lymphedema therapy at home. We asked him to return to our office in 6 months. He may call if he has any questions or concerns in the interim. Assessment & Plan (Attending) I agree with note created by Parisa Hernandez PA-C. I reviewed the patient's chart and information with her. I have examined and evaluated the patient. I reviewed relevant clinical information and answered the patient's and/or family' s questions. GAS SINGER Total Time In Follow-Up I spent 20 minutes speaking to the patient in performing examination. I spent 15 minutes reviewing information and completing this note. AK Total Time (Attending) In Follow-Up I spent 15 minutes examining and counseling the patient. GAS SINGER Copy To Dao Villegas M.D.; Pablo Bonner MD; AYAZ MENDOZA
== END | disposition home or self-care (01) ==
LOC: C.ONC 07:34
PROVIDERS: ATTEND Physician Assistant Medical
DX: Z08 Encounter for follow-up examination after completed treatment for malignant neoplasm (principal); Z92.3 Personal history of irradiation; Z85.810 Personal history of malignant neoplasm of tongue